=== PATIENT | male | born 1980 | race Caucasian/White ===

== ENCOUNTER → 2017-10-04 11:02 | Outpatient (CLI) | payer BC, SELFPAY ==
[2017-10-04 11:33] LABS: Basophils % 0.1 % (0.1-2.0); Eosinophils % 0.3 % (0.1-12.0); Hematocrit 50.9 % (42.0-52.0); Hemoglobin 16.7 g/dL (14.1-18.0); Lymphocytes # 1.1 K/mm3 (0.7-4.5); Lymphocytes % 11.5 K/mm3 (10-50); Mean Corpuscular HGB Conc 32.8 g/dL (31.8-35.4); Mean Corpuscular Hemoglobin 35.4 pg (27.0-31.2); Mean Corpuscular Volume 107.8 fl (80-94); Monocytes # 0.3 K/mm3 (0.1-1.0); Monocytes % 2.9 % (1.7-9.3); Neutrophils # 8.2 K/mm3 (1.8-7.8); Neutrophils % 85.2 % (37.0-80.0); Platelet Count 415 K/mm3 (142-424); Red Blood Count 4.72 M/mm3 (4.60-6.20); Red Cell Distribution Width 13.9 % (11.5-17.5); White Blood Count 9.7 K/mm3 (4.8-10.8)
[2017-10-04 11:39] LABS: MANUAL DIFFERENTIAL MANUAL DIFFERENTIAL (MANUAL DIFF)
[2017-10-04 11:45] LABS: Alanine Aminotransferase 47 U/L (12-78); Albumin Level 4.3 gm/dL (3.4-5.0); Albumin/Globulin Ratio 1.1 (1.1-1.8); Alkaline Phosphatase 96 U/L (46-116); Anion Gap 13.8 mEq/L (5-15); Aspartate Amino Transferase 13 U/L (15-37); Bilirubin,Total 0.7 mg/dL (0.2-1.0); Blood Urea Nitrogen 13 mg/dL (7-18); Carbon Dioxide 28 mmol/L (21.0-32.0); Chloride 101 mmol/L (98-107); Creatinine,Serum 1.02 mg/dL (0.70-1.30); Estimated Glomerular Filt Rate 83 ml/min (>60); GFR (African American) 100 ML/MIN (>60); Globulin 3.9 gm/dl (1.3-3.2); Glucose 148 mg/dL (74-106); Potassium 4.8 mmoL/L (3.5-5.1); Sodium 138 mmol/L (136-145); Total Protein,Serum 8.2 gm/dL (6.4-8.2)
[2017-10-04 12:40] LABS: Eosinophils % 1 % (0-3); Lymphocytes % 12 % (10-50); Monocytes % 5 % (2-9); Neutrophils % 82 % (42-76); Platelet Estimate Normal; RBC Morphology Normal; Total Cells Counted 100
== END ==
PROVIDERS: Visit Provider Surgery
DX: K80.10 Calculus of gallbladder with chronic cholecystitis without obstruction (principal)
CPT/HCPCS: 36415; 80053; 85007; 85025; 93005

== ENCOUNTER 2017-10-07 07:11 | Day surgery (SDC) | payer BC, SELFPAY ==
[2017-10-06 13:47] VITALS: BMI 39.3
[2017-10-07] VITALS (16 sets, daily range): BP systolic 128–167; BP diastolic 78–107; PULSE 85–106; RESP 16–20; TEMP 36.3–43; O2SAT 92–98
--- NOTE | 2017-10-07 07:45 | HMH.ANESCL ---
[facility] Anesthesia Checklist - Patient Identification Patient Identification: Arm Band, Verbal (Name & ) - Structural Data Admitted From: Home Planned Operative Procedure/s: lap choly Consent for Planned Operative Procedure(s) Verified: Yes Verified Documents: Surgical Consent - NPO Status Verified Time NPO: 00:00 - Chart Verification Results Verified: CBC, BMP - Additional verifications Patient : No Anesthesia Reactions: No Hx Blood Transfusions: No Blood Transfusion Reaction: No Cephalosporin Allergy: No Previous Colonoscopy: No - Cardiovascular Assessment Heart Sounds: S1 & S2 Pulse Strength: Baseline Pulse Rhythm: Regular Peripheral Edema: No - Airway Assessment C-Spine Mobility Assessed: Yes TMJ Mobility Assessed: Yes Dentition: Good Dentition - Neurological Assessment Level of Consciousness: Awake, Alert, Appropriate Hx Seizures: No Numbness or tingling in extremities: No - Anesthesia Plan Anesthesia Risk discussed: Yes Anesthesia Plan: Verified ASA Class: II Anesthesia Type: MAC [facility] Anesthesia HX I have reviewed the patient's past medical history: Yes Medical History: Reports:: Hypertension Denies:: Cancer, Diabetes Mellitus Type 1, Diabetes Mellitus Type 2, MRSA Other Surgeries: Yes: Hernia Repair Amputation: No *Family Hx:: Diabetes, Heart Attack, Hypertension
--- NOTE | 2017-10-07 07:48 | P.PN_ITS ---
[facility] Anesthesia Checklist - Patient Identification Patient Identification: Arm Band, Verbal (Name & ) - Structural Data Admitted From: Home Planned Operative Procedure/s: lap choly Consent for Planned Operative Procedure(s) Verified: Yes Verified Documents: Surgical Consent - NPO Status Verified Time NPO: 00:00 - Chart Verification Results Verified: CBC, BMP - Additional verifications Patient : No Anesthesia Reactions: No Hx Blood Transfusions: No Blood Transfusion Reaction: No Cephalosporin Allergy: No Previous Colonoscopy: No - Cardiovascular Assessment Heart Sounds: S1 & S2 Pulse Strength: Baseline Pulse Rhythm: Regular Peripheral Edema: No - Airway Assessment C-Spine Mobility Assessed: Yes TMJ Mobility Assessed: Yes Dentition: Good Dentition - Neurological Assessment Level of Consciousness: Awake, Alert, Appropriate Hx Seizures: No Numbness or tingling in extremities: No - Anesthesia Plan Anesthesia Risk discussed: Yes Anesthesia Plan: Verified ASA Class: II Anesthesia Type: MAC [facility] Anesthesia HX I have reviewed the patient's past medical history: Yes Medical History: Reports:: Hypertension Denies:: Cancer, Diabetes Mellitus Type 1, Diabetes Mellitus Type 2, MRSA Other Surgeries: Yes: Hernia Repair Amputation: No *Family Hx:: Diabetes, Heart Attack, Hypertension
--- NOTE | 2017-10-07 10:21 | SUR.OPER ---
Upon entering OR pt has 2 small scratches noted to abdomen, Dr Hartmann aware.
--- NOTE | 2017-10-07 10:53 | HMH.OPNOTE ---
Date of procedure: 10/07/17 Pre-op Diagnosis:: Chronic calculus cholecystitis Post-op Diagnosis:: Same Procedure performed:: Laparoscopic cholecystectomy Surgeon:: Raji Hartmann MD Ceramic Tile Mechanic(s):: Jannie Stephens ADVERTISING TRAFFIC MANAGER:: Dileep Spann Anesthesia: GETA Estimated blood loss (mL): 15 Operative findings:: Dense adhesions of omentum to anterior abdominal wall along the mid abdomen status post prior hernia repair Changes consistent with mild to moderate cholecystitis Operative note:: After informed consent was obtained, the patient was taken to the operating room and placed in the supine position. General anesthesia was induced and the abdomen was prepped and draped in a sterile fashion. After infiltration with local anesthetic a stab incision was made in the left upper quadrant. A Veress needle was placed in position. After infiltration with local anesthetic an incision was made in the left mid flank and a 5 mm trocar was secured. Visualization revealed dense adhesions of omentum to the anterior abdominal wall status post prior hernia repair. A 12 mm optical trocar was placed in the subxiphoid position under direct visualization. Careful blunt dissection was utilized to free enough space for the supraumbilical trocar to be placed. After infiltration with local anesthetic an incision was made above the umbilicus and the 5 mm trocar was secured. 2 additional 5 mm trocars were placed in the right upper quadrant. The gallbladder was elevated up and over the liver margin. The tissue around the cystic duct was carefully dissected. 3 clips were placed proximally and the duct was transected with harmonic ace. Harmonic ace were then utilized to dissect the gallbladder away from the liver margin with careful attention to the control of the cystic artery. The gallbladder was placed in a retrieval bag and removed through the subxiphoid trocar site. The right upper quadrant was thoroughly irrigated. No active bleeding or bile leak was noted. Fascia at the subxiphoid trocar site was reapproximated utilizing the NeoClose device. The remaining trocars were removed. All wounds were irrigated and skin was closed with 4-0 Monocryl in a subcuticular fashion. Steri-Strips were applied. The patient's anesthetic agents were reversed and extubation was completed prior to transfer to recovery in stable condition. Condition: stable Disposition: PACU Specimens:: Gallbladder and contents Complications:: No immediate
--- NOTE | 2017-10-07 10:58 | P.OP_ITS ---
Date of procedure: 10/07/17 Pre-op Diagnosis:: Chronic calculus cholecystitis Post-op Diagnosis:: Same Procedure performed:: Laparoscopic cholecystectomy Surgeon:: Raji Hartmann MD Yeast Pusher(s):: Jannie Stephens MEDICAL INSURANCE CODER:: Dileep Spann Anesthesia: GETA Estimated blood loss (mL): 15 Operative findings:: Dense adhesions of omentum to anterior abdominal wall along the mid abdomen status post prior hernia repair Changes consistent with mild to moderate cholecystitis Operative note:: After informed consent was obtained, the patient was taken to the operating room and placed in the supine position. General anesthesia was induced and the abdomen was prepped and draped in a sterile fashion. After infiltration with local anesthetic a stab incision was made in the left upper quadrant. A Veress needle was placed in position. After infiltration with local anesthetic an incision was made in the left mid flank and a 5 mm trocar was secured. Visualization revealed dense adhesions of omentum to the anterior abdominal wall status post prior hernia repair. A 12 mm optical trocar was placed in the subxiphoid position under direct visualization. Careful blunt dissection was utilized to free enough space for the supraumbilical trocar to be placed. After infiltration with local anesthetic an incision was made above the umbilicus and the 5 mm trocar was secured. 2 additional 5 mm trocars were placed in the right upper quadrant. The gallbladder was elevated up and over the liver margin. The tissue around the cystic duct was carefully dissected. 3 clips were placed proximally and the duct was transected with harmonic ace. Harmonic cae were then utilized to dissect the gallbladder away from the liver margin with careful attention to the control of the cystic artery. The gallbladder was placed in a retrieval bag and removed through the subxiphoid trocar site. The right upper quadrant was thoroughly irrigated. No active bleeding or bile leak was noted. Fascia at the subxiphoid trocar site was reapproximated utilizing the NeoClose device. The remaining trocars were removed. All wounds were irrigated and skin was closed with 4-0 Monocryl in a subcuticular fashion. Steri-Strips were applied. The patient's anesthetic agents were reversed and extubation was completed prior to transfer to recovery in stable condition. Condition: stable Disposition: PACU Specimens:: Gallbladder and contents Complications:: No immediate
--- NOTE | 2017-10-07 11:05 | HMH.ANESI ---
[facility] Anesthesia Record Part I Intake, IV Amount: 1,500 Estimated blood loss (mL): 15 Urine output (mL): 0 Blood Pressure: 155/107 SaO2: 95 Pulse Rate: 100 Respiratory Rate: 16 Temperature: 98.9 F Patient is:: Drowsy, Stable Stable to PACU at:: 11:00
--- NOTE | 2017-10-07 11:06 | P.PN_ITS ---
[facility] Anesthesia Record Part II Discharge Time: 11:30 Destination: [facility] PACU nurse assessment reviewed?: Yes Patient Condition:: Good Anesthesia Complications:: None
--- NOTE | 2017-10-07 11:06 | HMH.ANESII ---
[facility] Anesthesia Record Part II Discharge Time: 11:30 Destination: [facility] PACU nurse assessment reviewed?: Yes Patient Condition:: Good Anesthesia Complications:: None
--- NOTE | 2017-10-07 15:08 | PC.NURSE ---
1115-pt eating ice chips w/out difficulty 1120-o2 titrated off, sats stable on room air
--- NOTE | 2017-10-07 15:18 | PC.NURSE ---
1137-detailed report called to JIL Webb 1139-Pt transported to post op via stretcher w/rails up and left in care of JIL Webb w/bed locked in lowest position. VSS. Pt stable.
== END 2017-10-07 13:00 | disposition home or self-care (01) ==
LOC: OR 07:13
PROVIDERS: Family Provider Emergency Medicine; PCP Emergency Medicine; Visit Provider Surgery
PROC: 0FT44ZZ Resection of Gallbladder, Percutaneous Endoscopic Approach (ICD-10-PCS; CPT 47562; principal; 2017-10-07 08:45)
DX: K81.1 Chronic cholecystitis (principal)
CPT/HCPCS: 47562; 96374; J0131; J2405; J2710

== ENCOUNTER → 2019-05-04 12:26 | Outpatient (CLI) | payer BC, SELFPAY | PROVIDERS: Visit Provider Emergency Medicine | DX: R10.30 Lower abdominal pain, unspecified (principal); R10.9 Unspecified abdominal pain | CPT/HCPCS: 87086 ==

== ENCOUNTER → 2019-08-11 12:25 | Outpatient (CLI) | payer BC, SELFPAY ==
[2019-08-11 15:16] LABS: Chol/HDL Ratio 6.6 (1-3.5); Cholesterol 126 mg/dL (140-200); Free T4 (Free Thyroxine) 1.03 ng/dl (0.76-1.46); HDL Cholesterol 19 mg/dL (27-67); LDL Cholesterol 44 mg/dL (0-130); Thyroid Stimulating Hormone 4.06 uIU/ml (0.358-3.740); Triglycerides 316 mg/dL (30-200); VLDL Cholesterol 63 mg/dL (0-40)
[2019-08-11 16:13] LABS: C-Reactive Protein 1.3 mg/dL (0.0-0.9)
[2019-08-11 18:59] LABS: Erythrocyte Sedimentation Rate > 140 mm/hr (0-15)
[2019-08-13 06:28] LABS: Vitamin D 25 Hydroxy 17.6 ng/mL (30.0-100.0)
== END ==
PROVIDERS: Emergency Medicine; Nurse Practitioner Family; Visit Provider Physician Assistant
DX: R53.83 Other fatigue (principal); R16.1 Splenomegaly, not elsewhere classified; E55.9 Vitamin D deficiency, unspecified
CPT/HCPCS: 80061; 82652; 84439; 84443; 85651; 86140

== ENCOUNTER → 2019-08-12 16:21 | Outpatient (CLI) | payer BC, SELFPAY ==
[2019-08-12 16:44] LABS: Basophils % 0.5 % (0.1-2.0); Eosinophils # 0.1 K/mm3 (0.0-0.4); Eosinophils % 2.9 % (0.1-12.0); Hemoglobin 8.3 g/dL (14.1-18.0); Lymphocytes # 1.3 K/mm3 (0.7-4.5); Lymphocytes % 29.5 % (10-50); Mean Corpuscular HGB Conc 35.8 g/dL (31.8-35.4); Mean Corpuscular Volume 119.3 fl (80-94); Mean Platelet Volume 8.6 fl (7.4-10.4); Monocytes # 0.1 K/mm3 (0.1-1.0); Monocytes % 2.9 % (1.7-9.3); Neutrophils # 2.8 K/mm3 (1.8-7.8); Neutrophils % 64.1 % (37.0-80.0); Platelet Count 178 K/mm3 (142-424); Red Cell Distribution Width 21.9 % (11.5-17.5); White Blood Count 4.3 K/mm3 (4.8-10.8)
[2019-08-12 16:53] LABS: Red Blood Count 1.95 M/mm3 (4.60-6.20)
[2019-08-12 17:00] LABS: Hematocrit 23.3 % (42.0-52.0)
[2019-08-12 19:25] LABS: Alanine Aminotransferase 36 U/L (12-78); Albumin Level 4.3 gm/dL (3.4-5.0); Albumin/Globulin Ratio 1.7 (1.1-1.8); Alkaline Phosphatase 70 U/L (46-116); Aspartate Amino Transferase 90 U/L (15-37); Bilirubin,Total 1.7 mg/dL (0.2-1.0); Blood Urea Nitrogen 14 mg/dL (7-18); Carbon Dioxide 25 mmol/L (21.0-32.0); Chloride 104 mmol/L (98-107); Creatinine,Serum 1.12 mg/dL (0.70-1.30); Estimated Glomerular Filt Rate 73 ml/min (>60); GFR (African American) 89 ML/MIN (>60); Globulin 2.5 gm/dl (1.3-3.2); Glucose 137 mg/dL (74-106); Sodium 140 mmol/L (136-145); Total Protein,Serum 6.8 gm/dL (6.4-8.2)
[2019-08-12 20:05] LABS: Lactate Dehydrogenase 2990 U/L (82-234)
[2019-08-15 17:57] LABS: Haptoglobin <10 mg/dL (17-317); Vitamin B12 <50 pg/mL (232-1245)
== END ==
PROVIDERS: Visit Provider Internal Medicine Medical Oncology
DX: D64.9 Anemia, unspecified (principal)
CPT/HCPCS: 36415; 80053; 82607; 83010; 83615; 85025; 86880

== ENCOUNTER → 2019-08-19 13:36 | Outpatient (CLI) | payer BC, SELFPAY ==
[2019-08-19 14:07] LABS: Basophils % 0.6 % (0.1-2.0); Eosinophils # 0.2 K/mm3 (0.0-0.4); Eosinophils % 3.7 % (0.1-12.0); Hemoglobin 8.4 g/dL (14.1-18.0); Lymphocytes # 1.8 K/mm3 (0.7-4.5); Lymphocytes % 33.8 % (10-50); Mean Corpuscular HGB Conc 33.8 g/dL (31.8-35.4); Mean Corpuscular Volume 112.4 fl (80-94); Mean Platelet Volume 8.9 fl (7.4-10.4); Monocytes # 0.3 K/mm3 (0.1-1.0); Monocytes % 5.2 % (1.7-9.3); Neutrophils % 56.6 % (37.0-80.0); Platelet Count 162 K/mm3 (142-424); Red Blood Count 2.21 M/mm3 (4.60-6.20); Red Cell Distribution Width 24.4 % (11.5-17.5); White Blood Count 5.3 K/mm3 (4.8-10.8)
[2019-08-19 14:22] LABS: Hematocrit 25.2 % (42.0-52.0)
[2019-08-19 15:16] LABS: Lactate Dehydrogenase 2554 U/L (82-234)
== END ==
PROVIDERS: Visit Provider Internal Medicine Medical Oncology
DX: D64.9 Anemia, unspecified (principal)
CPT/HCPCS: 36415; 83615; 85025

== ENCOUNTER → 2019-08-26 11:53 | Outpatient (CLI) | payer BC, SELFPAY ==
[2019-08-26 12:23] LABS: Basophils % 0.3 % (0.1-2.0); Eosinophils # 0.3 K/mm3 (0.0-0.4); Hematocrit 37.5 % (42.0-52.0); Hemoglobin 11.5 g/dL (14.1-18.0); Lymphocytes # 1.1 K/mm3 (0.7-4.5); Lymphocytes % 19.2 % (10-50); Mean Corpuscular HGB Conc 30.8 g/dL (31.8-35.4); Mean Corpuscular Hemoglobin 35.1 pg (27.0-31.2); Mean Platelet Volume 8.4 fl (7.4-10.4); Monocytes # 0.4 K/mm3 (0.1-1.0); Monocytes % 6.4 % (1.7-9.3); Neutrophils # 3.8 K/mm3 (1.8-7.8); Neutrophils % 68.1 % (37.0-80.0); Platelet Count 295 K/mm3 (142-424); Red Blood Count 3.29 M/mm3 (4.60-6.20); Red Cell Distribution Width 20.5 % (11.5-17.5); White Blood Count 5.5 K/mm3 (4.8-10.8)
[2019-08-26 13:39] LABS: Lactate Dehydrogenase 603 U/L (82-234)
== END ==
PROVIDERS: Visit Provider Internal Medicine Medical Oncology
DX: D53.9 Nutritional anemia, unspecified (principal); E53.8 Deficiency of other specified B group vitamins
CPT/HCPCS: 36415; 83615; 85025

== ENCOUNTER → 2019-09-02 14:36 | Outpatient (CLI) | payer BC, SELFPAY ==
[2019-09-02 15:02] LABS: Basophils # 0.1 K/mm3 (0-0.2); Eosinophils # 0.3 K/mm3 (0.0-0.4); Eosinophils % 5.6 % (0.1-12.0); Hematocrit 37.5 % (42.0-52.0); Lymphocytes # 1.3 K/mm3 (0.7-4.5); Lymphocytes % 23.4 % (10-50); Mean Corpuscular HGB Conc 31.9 g/dL (31.8-35.4); Mean Corpuscular Hemoglobin 34.2 pg (27.0-31.2); Mean Corpuscular Volume 107.3 fl (80-94); Mean Platelet Volume 7.8 fl (7.4-10.4); Monocytes # 0.3 K/mm3 (0.1-1.0); Monocytes % 5.7 % (1.7-9.3); Neutrophils # 3.6 K/mm3 (1.8-7.8); Neutrophils % 64.2 % (37.0-80.0); Platelet Count 374 K/mm3 (142-424); Red Blood Count 3.49 M/mm3 (4.60-6.20); Red Cell Distribution Width 17.9 % (11.5-17.5); White Blood Count 5.5 K/mm3 (4.8-10.8)
[2019-09-02 16:07] LABS: Alanine Aminotransferase 35 U/L (12-78); Albumin Level 3.9 gm/dL (3.4-5.0); Albumin/Globulin Ratio 1.4 (1.1-1.8); Alkaline Phosphatase 94 U/L (46-116); Anion Gap 15.2 mEq/L (5-15); Aspartate Amino Transferase 20 U/L (15-37); Bilirubin,Total 0.5 mg/dL (0.2-1.0); Blood Urea Nitrogen 11 mg/dL (7-18); Calcium 8.8 mg/dL (8.5-10.1); Carbon Dioxide 26 mmol/L (21.0-32.0); Chloride 106 mmol/L (98-107); Creatinine,Serum 1.04 mg/dL (0.70-1.30); Estimated Glomerular Filt Rate 80 ml/min (>60); GFR (African American) 97 ML/MIN (>60); Globulin 2.7 gm/dl (1.3-3.2); Glucose 142 mg/dL (74-106); Lactate Dehydrogenase 223 U/L (82-234); Potassium 4.2 mmoL/L (3.5-5.1); Sodium 143 mmol/L (136-145); Total Protein,Serum 6.6 gm/dL (6.4-8.2)
[2019-09-04 11:04] LABS: Vitamin B12 496 pg/mL (232-1245)
== END ==
PROVIDERS: Visit Provider Internal Medicine Medical Oncology
DX: D51.8 Other vitamin B12 deficiency anemias (principal)
CPT/HCPCS: 36415; 80053; 82607; 83615; 85025

== ENCOUNTER → 2019-09-09 17:17 | Outpatient (CLI) | payer BC, SELFPAY ==
[2019-09-09 17:46] LABS: Basophils # 0.1 K/mm3 (0-0.2); Basophils % 0.9 % (0.1-2.0); Eosinophils # 0.4 K/mm3 (0.0-0.4); Eosinophils % 5.1 % (0.1-12.0); Hematocrit 39.7 % (42.0-52.0); Hemoglobin 13.1 g/dL (14.1-18.0); Lymphocytes # 1.5 K/mm3 (0.7-4.5); Lymphocytes % 17.8 % (10-50); Mean Corpuscular Hemoglobin 33.1 pg (27.0-31.2); Mean Corpuscular Volume 100.2 fl (80-94); Mean Platelet Volume 7.7 fl (7.4-10.4); Monocytes # 0.4 K/mm3 (0.1-1.0); Monocytes % 4.8 % (1.7-9.3); Neutrophils # 5.8 K/mm3 (1.8-7.8); Neutrophils % 71.4 % (37.0-80.0); Platelet Count 363 K/mm3 (142-424); Red Blood Count 3.96 M/mm3 (4.60-6.20); Red Cell Distribution Width 16.5 % (11.5-17.5); White Blood Count 8.2 K/mm3 (4.8-10.8)
[2019-09-09 18:27] LABS: Alanine Aminotransferase 28 U/L (12-78); Albumin Level 4.3 gm/dL (3.4-5.0); Albumin/Globulin Ratio 1.5 (1.1-1.8); Alkaline Phosphatase 99 U/L (46-116); Anion Gap 14.1 mEq/L (5-15); Aspartate Amino Transferase 18 U/L (15-37); Bilirubin,Total 0.4 mg/dL (0.2-1.0); Blood Urea Nitrogen 14 mg/dL (7-18); Calcium 8.9 mg/dL (8.5-10.1); Carbon Dioxide 26 mmol/L (21.0-32.0); Chloride 105 mmol/L (98-107); Creatinine,Serum 0.94 mg/dL (0.70-1.30); Estimated Glomerular Filt Rate 90 ml/min (>60); GFR (African American) 109 ML/MIN (>60); Globulin 2.8 gm/dl (1.3-3.2); Glucose 154 mg/dL (74-106); Lactate Dehydrogenase 170 U/L (82-234); Potassium 4.1 mmoL/L (3.5-5.1); Sodium 141 mmol/L (136-145); Total Protein,Serum 7.1 gm/dL (6.4-8.2)
[2019-09-11 15:31] LABS: Vitamin B12 499 pg/mL (232-1245)
== END ==
PROVIDERS: Visit Provider Internal Medicine Medical Oncology
DX: D51.9 Vitamin B12 deficiency anemia, unspecified (principal)
CPT/HCPCS: 36415; 80053; 82607; 83615; 85025

== ENCOUNTER → 2019-09-24 12:08 | Outpatient (CLI) | payer BC, SELFPAY ==
[2019-09-24 12:52] LABS: Basophils % 0.5 % (0.1-2.0); Eosinophils # 0.4 K/mm3 (0.0-0.4); Eosinophils % 5.6 % (0.1-12.0); Hematocrit 45.7 % (42.0-52.0); Hemoglobin 14.3 g/dL (14.1-18.0); Lymphocytes # 1.4 K/mm3 (0.7-4.5); Mean Corpuscular HGB Conc 31.2 g/dL (31.8-35.4); Mean Corpuscular Hemoglobin 30.2 pg (27.0-31.2); Mean Corpuscular Volume 96.8 fl (80-94); Mean Platelet Volume 7.8 fl (7.4-10.4); Monocytes # 0.4 K/mm3 (0.1-1.0); Monocytes % 6.2 % (1.7-9.3); Neutrophils # 4.8 K/mm3 (1.8-7.8); Neutrophils % 67.6 % (37.0-80.0); Platelet Count 382 K/mm3 (142-424); Red Blood Count 4.72 M/mm3 (4.60-6.20); Red Cell Distribution Width 16.4 % (11.5-17.5); White Blood Count 7.1 K/mm3 (4.8-10.8)
[2019-09-24 14:46] LABS: Chloride 104 mmol/L (98-107)
[2019-09-24 14:47] LABS: Potassium 4.9 mmoL/L (3.5-5.1); Sodium 141 mmol/L (136-145)
[2019-09-24 14:49] LABS: Alanine Aminotransferase 23 U/L (12-78); Alkaline Phosphatase 81 U/L (38-126); Aspartate Amino Transferase 30 U/L (17-59); Bilirubin,Total 0.3 mg/dl (0.2-1.3); Blood Urea Nitrogen 14 mg/dl (9-20); Estimated Glomerular Filt Rate 94 ml/min (>60); GFR (African American) 114 ML/MIN (>60)
[2019-09-24 14:50] LABS: Albumin Level 4.8 g/dl (3.5-5.0); Albumin/Globulin Ratio 1.6 (1.1-1.8); Anion Gap 13.9 mEq/L (5-15); Carbon Dioxide 28 mmol/L (22.0-30.0); Glucose 83 mg/dl (74-100); Total Protein,Serum 7.8 g/dl (6.3-8.2)
[2019-09-24 15:17] LABS: Thyroid Stimulating Hormone 7.04 uIU/mL (0.465-4.68)
== END ==
PROVIDERS: Visit Provider Internal Medicine Medical Oncology
DX: D53.9 Nutritional anemia, unspecified (principal); E53.8 Deficiency of other specified B group vitamins; R16.1 Splenomegaly, not elsewhere classified
CPT/HCPCS: 36415; 80053; 84443; 85025

== ENCOUNTER → 2019-11-05 08:49 | Outpatient (CLI) | payer BC, SELFPAY ==
[2019-11-05 09:52] LABS: Basophils % 0.7 % (0.1-2.0); Eosinophils # 0.3 K/mm3 (0.0-0.4); Eosinophils % 4.8 % (0.1-12.0); Hematocrit 45.3 % (42.0-52.0); Hemoglobin 15.3 g/dL (14.1-18.0); Lymphocytes # 1.5 K/mm3 (0.7-4.5); Mean Corpuscular HGB Conc 33.8 g/dL (31.8-35.4); Mean Corpuscular Hemoglobin 29.8 pg (27.0-31.2); Mean Corpuscular Volume 88.1 fl (80-94); Monocytes # 0.4 K/mm3 (0.1-1.0); Monocytes % 5.7 % (1.7-9.3); Neutrophils % 64.9 % (37.0-80.0); Platelet Count 274 K/mm3 (142-424); Red Blood Count 5.15 M/mm3 (4.60-6.20); White Blood Count 6.2 K/mm3 (4.8-10.8)
[2019-11-05 10:54] LABS: Alanine Aminotransferase 33 U/L (12-78); Albumin Level 4.5 g/dl (3.5-5.0); Albumin/Globulin Ratio 1.6 (1.1-1.8); Alkaline Phosphatase 97 U/L (38-126); Anion Gap 14.1 mEq/L (5-15); Aspartate Amino Transferase 32 U/L (17-59); Bilirubin,Total 0.3 mg/dl (0.2-1.3); Blood Urea Nitrogen 11 mg/dl (9-20); Calcium 9.7 mg/dl (8.4-10.2); Carbon Dioxide 24 mmol/L (22.0-30.0); Chloride 105 mmol/L (98-107); Estimated Glomerular Filt Rate 108 ml/min (>60); GFR (African American) 131 ML/MIN (>60); Globulin 2.8 g/dL (1.3-3.2); Glucose 151 mg/dl (74-100); Lactate Dehydrogenase 203 U/L (313-618); Potassium 4.1 mmoL/L (3.5-5.1); Sodium 139 mmol/L (136-145); Total Protein,Serum 7.3 g/dl (6.3-8.2)
[2019-11-06 07:26] LABS: Haptoglobin 171 mg/dL (17-317)
[2019-11-06 09:07] LABS: Vitamin B12 166 pg/mL (232-1245)
== END ==
PROVIDERS: Visit Provider Internal Medicine Medical Oncology
DX: E53.8 Deficiency of other specified B group vitamins (principal)
CPT/HCPCS: 36415; 80053; 82607; 83010; 83615; 85025

== ENCOUNTER → 2019-12-06 08:20 | Outpatient (CLI) | payer BC, SELFPAY ==
[2019-12-06 09:11] LABS: Basophils # 0.1 K/mm3 (0-0.2); Basophils % 0.8 % (0.1-2.0); Eosinophils # 0.3 K/mm3 (0.0-0.4); Eosinophils % 3.6 % (0.1-12.0); Hematocrit 44.4 % (42.0-52.0); Hemoglobin 15.2 g/dL (14.1-18.0); Lymphocytes # 1.5 K/mm3 (0.7-4.5); Lymphocytes % 20.6 % (10-50); Mean Corpuscular HGB Conc 34.1 g/dL (31.8-35.4); Mean Corpuscular Hemoglobin 29.1 pg (27.0-31.2); Mean Corpuscular Volume 85.1 fl (80-94); Mean Platelet Volume 8.3 fl (7.4-10.4); Monocytes # 0.3 K/mm3 (0.1-1.0); Monocytes % 4.5 % (1.7-9.3); Neutrophils # 5.1 K/mm3 (1.8-7.8); Neutrophils % 70.4 % (37.0-80.0); Platelet Count 277 K/mm3 (142-424); Red Blood Count 5.21 M/mm3 (4.60-6.20); Red Cell Distribution Width 14.3 % (11.5-17.5); White Blood Count 7.2 K/mm3 (4.8-10.8)
[2019-12-06 10:42] LABS: Alanine Aminotransferase 37 U/L (12-78); Albumin Level 4.5 g/dl (3.5-5.0); Albumin/Globulin Ratio 1.7 (1.1-1.8); Alkaline Phosphatase 99 U/L (38-126); Anion Gap 10.2 mEq/L (5-15); Aspartate Amino Transferase 32 U/L (17-59); Bilirubin,Total 0.4 mg/dl (0.2-1.3); Blood Urea Nitrogen 10 mg/dl (9-20); Calcium 9.5 mg/dl (8.4-10.2); Carbon Dioxide 28 mmol/L (22.0-30.0); Chloride 104 mmol/L (98-107); Estimated Glomerular Filt Rate 108 ml/min (>60); GFR (African American) 131 ML/MIN (>60); Globulin 2.7 g/dL (1.3-3.2); Glucose 141 mg/dl (74-100); Potassium 4.2 mmoL/L (3.5-5.1); Sodium 138 mmol/L (136-145); Total Protein,Serum 7.2 g/dl (6.3-8.2)
[2019-12-07 17:20] LABS: Vitamin B12 462 pg/mL (232-1245)
== END ==
PROVIDERS: Visit Provider Internal Medicine Medical Oncology
DX: E53.8 Deficiency of other specified B group vitamins (principal)
CPT/HCPCS: 36415; 80053; 82607; 85025

== ENCOUNTER → 2019-12-16 16:37 | Outpatient (CLI) | payer BC, SELFPAY ==
[2019-12-16 16:40] LABS: Adenovirus F 40/41, stool Not Detected (NotDetected); Astrovirus Not Detected (NotDetected); Campylobacter Not Detected (NotDetected); Cryptosporidium Not Detected (NotDetected); Cyclospora Cayetanesis Not Detected (NotDetected); Entamoeba histolytica Not Detected (NotDetected); Enteroaggregative E coli Not Detected (NotDetected); Enteropathogenic E coli Not Detected (NotDetected); Enterotoxigenic E coli Not Detected (NotDetected); Giardia lamblia Not Detected (NotDetected); Norovirus Not Detected (NotDetected); Plesimonas Shigalloides, PCR Not Detected (NotDetected); Rotavirus A Not Detected (NotDetected); Salmonella, PCR Not Detected (NotDetected); Sapovirus Not Detected (NotDetected); Shiga-like toxin E coli Not Detected (NotDetected); Shigella Enterovasive E coli Not Detected (NotDetected); Vibrio Cholerae Not Detected (NotDetected); Vibrio, PCR Not Detected (NotDetected); Yersinia Entercolitica, PCR Not Detected (NotDetected)
[2019-12-16 20:26] LABS: Clostridium Difficile A/B, PCR Detected (NotDetected)
== END ==
PROVIDERS: Visit Provider Physician Assistant
DX: R19.7 Diarrhea, unspecified (principal); A04.72 Enterocolitis due to Clostridium difficile, not specified as recurrent
CPT/HCPCS: 87507

== ENCOUNTER → 2020-01-03 11:18 | Outpatient (CLI) | payer BC, SELFPAY ==
[2020-01-03 11:44] LABS: Basophils # 0.1 K/mm3 (0-0.2); Basophils % 0.7 % (0.1-2.0); Eosinophils # 0.3 K/mm3 (0.0-0.4); Eosinophils % 3.2 % (0.1-12.0); Hematocrit 45.3 % (42.0-52.0); Hemoglobin 15.4 g/dL (14.1-18.0); Lymphocytes # 1.7 K/mm3 (0.7-4.5); Lymphocytes % 19.3 % (10-50); Mean Corpuscular Hemoglobin 30.9 pg (27.0-31.2); Mean Corpuscular Volume 90.8 fl (80-94); Mean Platelet Volume 7.9 fl (7.4-10.4); Monocytes # 0.4 K/mm3 (0.1-1.0); Monocytes % 4.6 % (1.7-9.3); Neutrophils # 6.3 K/mm3 (1.8-7.8); Neutrophils % 72.1 % (37.0-80.0); Platelet Count 297 K/mm3 (142-424); Red Blood Count 4.99 M/mm3 (4.60-6.20); Red Cell Distribution Width 15.8 % (11.5-17.5); White Blood Count 8.8 K/mm3 (4.8-10.8)
[2020-01-04 13:41] LABS: Vitamin B12 632 pg/mL (232-1245)
== END ==
PROVIDERS: Visit Provider Internal Medicine Medical Oncology
DX: E53.8 Deficiency of other specified B group vitamins (principal)
CPT/HCPCS: 36415; 82607; 85025

== ENCOUNTER → 2020-02-29 08:15 | Outpatient (CLI) | payer BC, SELFPAY ==
[2020-02-29 08:34] LABS: Basophils % 0.4 % (0.1-2.0); Eosinophils # 0.3 K/mm3 (0.0-0.4); Eosinophils % 3.7 % (0.1-12.0); Hematocrit 45.5 % (42.0-52.0); Hemoglobin 15.6 g/dL (14.1-18.0); Lymphocytes # 1.6 K/mm3 (0.7-4.5); Lymphocytes % 18.5 % (10-50); Mean Corpuscular HGB Conc 34.3 g/dL (31.8-35.4); Mean Corpuscular Volume 93.5 fl (80-94); Mean Platelet Volume 8.2 fl (7.4-10.4); Monocytes # 0.4 K/mm3 (0.1-1.0); Monocytes % 4.7 % (1.7-9.3); Neutrophils # 6.1 K/mm3 (1.8-7.8); Neutrophils % 72.7 % (37.0-80.0); Platelet Count 258 K/mm3 (142-424); Red Blood Count 4.87 M/mm3 (4.60-6.20); Red Cell Distribution Width 14.5 % (11.5-17.5); White Blood Count 8.5 K/mm3 (4.8-10.8)
[2020-02-29 09:04] LABS: Chloride 102 mmol/L (98-107); Potassium 4.1 mmoL/L (3.5-5.1); Sodium 139 mmol/L (136-145)
[2020-02-29 09:07] LABS: Alanine Aminotransferase 39 U/L (12-78); Alkaline Phosphatase 115 U/L (38-126); Aspartate Amino Transferase 32 U/L (17-59); Bilirubin,Total 0.6 mg/dl (0.2-1.3); Blood Urea Nitrogen 11 mg/dl (9-20); Estimated Glomerular Filt Rate 108 ml/min (>60); GFR (African American) 131 ML/MIN (>60)
[2020-02-29 09:08] LABS: Calcium 9.2 mg/dl (8.4-10.2); Glucose 154 mg/dl (74-100)
[2020-02-29 09:33] LABS: Albumin Level 4.1 g/dl (3.5-5.0); Albumin/Globulin Ratio 1.6 (1.1-1.8); Anion Gap 14.1 mEq/L (5-15); Carbon Dioxide 27 mmol/L (22.0-30.0); Globulin 2.6 g/dL (1.3-3.2); Total Protein,Serum 6.7 g/dl (6.3-8.2)
[2020-03-01 20:02] LABS: Vitamin B12 658 pg/mL (232-1245)
== END ==
PROVIDERS: Visit Provider Internal Medicine Medical Oncology
DX: D51.9 Vitamin B12 deficiency anemia, unspecified (principal)
CPT/HCPCS: 36415; 80053; 82607; 85025

== ENCOUNTER → 2020-05-03 09:26 | Outpatient (CLI) | payer BC, SELFPAY ==
[2020-05-03 10:08] LABS: Basophils % 0.5 % (0.1-2.0); Eosinophils # 0.2 K/mm3 (0.0-0.4); Eosinophils % 2.8 % (0.1-12.0); Hematocrit 48.1 % (42.0-52.0); Hemoglobin 15.8 g/dL (14.1-18.0); Lymphocytes # 1.7 K/mm3 (0.7-4.5); Lymphocytes % 21.4 % (10-50); Mean Corpuscular HGB Conc 32.9 g/dL (31.8-35.4); Mean Corpuscular Hemoglobin 30.8 pg (27.0-31.2); Mean Corpuscular Volume 93.6 fl (80-94); Mean Platelet Volume 7.9 fl (7.4-10.4); Monocytes # 0.4 K/mm3 (0.1-1.0); Monocytes % 4.7 % (1.7-9.3); Neutrophils # 5.5 K/mm3 (1.8-7.8); Neutrophils % 70.5 % (37.0-80.0); Platelet Count 259 K/mm3 (142-424); Red Blood Count 5.14 M/mm3 (4.60-6.20); White Blood Count 7.7 K/mm3 (4.8-10.8)
[2020-05-03 12:35] LABS: Chloride 104 mmol/L (98-107)
[2020-05-03 12:36] LABS: Potassium 4.4 mmoL/L (3.5-5.1); Sodium 139 mmol/L (136-145)
[2020-05-03 12:38] LABS: Alanine Aminotransferase 38 U/L (12-78); Alkaline Phosphatase 113 U/L (38-126); Aspartate Amino Transferase 35 U/L (17-59); Bilirubin,Total 0.8 mg/dl (0.2-1.3); Blood Urea Nitrogen 8 mg/dl (9-20); Estimated Glomerular Filt Rate 94 ml/min (>60); GFR (African American) 114 ML/MIN (>60)
[2020-05-03 12:39] LABS: Albumin Level 4.4 g/dl (3.5-5.0); Albumin/Globulin Ratio 1.6 (1.1-1.8); Anion Gap 12.4 mEq/L (5-15); Calcium 9.3 mg/dl (8.4-10.2); Carbon Dioxide 27 mmol/L (22.0-30.0); Globulin 2.8 g/dL (1.3-3.2); Glucose 143 mg/dl (74-100); Total Protein,Serum 7.2 g/dl (6.3-8.2)
[2020-05-03 18:01] LABS: Vitamin B12 894 pg/mL (239-931)
== END ==
PROVIDERS: Visit Provider Internal Medicine Medical Oncology
DX: E53.8 Deficiency of other specified B group vitamins (principal)
CPT/HCPCS: 36415; 80053; 82607; 85025

== ENCOUNTER → 2020-05-18 08:01 | Outpatient (CLI) | payer BC, SELFPAY ==
--- NOTE | 2020-05-18 08:04 | US_ITS ---
PROCEDURE: US ABDOMEN LIMITED CLINICAL INDICATION: SPLEENOMEGALY,B-12 DEFICIENCY COMPARISON: No exams were available for comparison FINDINGS: The spleen is enlarged at 14 cm.. Left kidney has an unremarkable appearance. IMPRESSION: Mild splenomegaly. Dictated by: Ramses Aiken MD 05/18/2020 15:48 Ramses Aiken MD in OV 05/18/2020 15:48
== END ==
PROVIDERS: PCP Emergency Medicine; Visit Provider Internal Medicine Medical Oncology
DX: R16.1 Splenomegaly, not elsewhere classified (principal); E53.8 Deficiency of other specified B group vitamins
CPT/HCPCS: 76705

== ENCOUNTER 2020-08-07 15:45 | Emergency (ER) | payer BC, SELFPAY ==
[2020-08-07 16:05] VITALS: BP 193/107; PULSE 114; RESP 20; TEMP 37.2; O2SAT 96; BMI 53.9
--- NOTE | 2020-08-07 16:33 | HMH.EDUTC ---
[facility] [place] Disposition Clinical Impression: Bronchitis Sinusitis Qualifiers: Sinusitis location: unspecified location Chronicity: unspecified Qualified Code(s): J32.9 - Chronic sinusitis, unspecified Bilateral otitis media Qualifiers: Otitis media type: unspecified Qualified Code(s): H66.93 - Otitis media, unspecified, bilateral Disposition: Home, Self-Care Condition on Discharge: Good Instructions: Sinusitis, DI for Sinusitis, Acute Bronchitis, DI for Pleurisy, Ibuprofen Additional Instructions: ? Start antibiotic today. Be sure to complete entire prescription even if feeling better ? Monitor temp. Tylenol every 4 hours as needed and / or ibuprofen every 6 hours as needed ( As long as your primary care physician has told you that it ok to take both. For fever/aches/pains ER if no less than 101 despite Tylenol or Motrin ? Humidifier/vaporizer or hot steamy shower ? Inhaler every 4-6 hours as needed like we discussed. If unsure how to use it, ask pharmacist to demonstrate how. Should help open airways and improve cough, wheezing, and shortness of breath ? Mucinex during the day for your cough and cough suppressant only at night. Be sure to drink lots of water. Insurance may not cover a prescriptions for mucinex. Might be cheaper to get 400mg tablets and take 2 tablet in the morning, mid-day and evening with lots of water. *Start steroid today. Helps with inflammation therefore, cough and wheezing. Follow directions on the package. Reviewed side effects. Patient reports taking them before. Follow up IMMEDIATELY for new or worsening of symptoms OR no noticeable improvement over the next 48-72 hours. 911 immediately for any life threatening symptoms such as chest pain or difficulty breathing Make sure to monitor blood pressure and go get your medication and take it as prescribed, follow up with your Family Doctor if your blood pressure remains elevated Prescriptions: Albuterol Sulfate [Proventil-HFA 90mcg/puff Inh] 1 - 2 puffs IH Q4HP PRN #1 inh PRN Reason: Shortness Of Breath Transmission Status: Pending to [facility] methylPREDNISolone [Medrol 4mg tab] 4 mg PO DIRECTED #21 tab Transmission Status: Pending to [facility] Azithromycin [Z-Leo 250mg Tab] 250 mg PO DIRECTED #6 tab Transmission Status: Pending to [facility] Referrals: Deangelo Arias MD [Primary Care Provider] - As needed Forms: Work/School Release Time of Disposition: 16:46 Medical Decision Making - Brock Inquiry Pt receiving controlled substance: No Brock was queried for this patient: No Vital Signs: 08/07/20 16:05 Temperature 99.0 F Temperature Source Oral Pulse Rate [Left Brachial] 114 H Respiratory Rate 20 Blood Pressure [Left Arm] 193/107 H Blood Pressure Mean [Left Arm] 135 Blood Pressure Source [Left Arm] Automatic Cuff Blood Pressure Position [Left Arm] Sitting 02 Sat by Pulse Oximetry 96 Oxygen Delivery Method Room Air Medical Decision Narrative: Discusses CXR with patient and he declined at this time [facility] HPI - General Stated complaint: rib pain, ears ringing Time Seen by Provider: 08/07/20 16:33 Mode of Arrival: Ambulatory Source of Information: Patient Limitations: No Limitations Description of Symptoms (Recalled from Triage Doc. by RN): PATIENT C/O LEFT RIB PAIN WITH BREATHING AND BILATERAL EAR PAIN THAT STARTED TODAY. STATES HE DOES NOT FEEL GOOD HEENT Symptoms (Recalled from RN notes): Yes Resp Symptoms (Recalled from RN notes): Yes Skin Symptoms (Recalled from RN notes): No MS Symptoms (Recalled from RN notes): No Functional Status (Recalled from RN notes): WNL - History of Present Illness Provider Complaint: Patient states that he has been having bilateral ear pain, scratchy throat sinus pressure and pain at times in his left rib area when he takes a deep breath States that today he has been feeling achy all over so he came in to get checked checked State
[2020-08-07 16:47] VITALS: BP 170/98; PULSE 98; RESP 20; TEMP 37.2; O2SAT 96
[2020-08-07 21:15] LABS: UTC Influenza A Antigen Negative (Negative); UTC Influenza B Antigen Negative (Negative)
== END 2020-08-07 16:50 | disposition home or self-care (01) ==
PROVIDERS: Emergency Provider Nurse Practitioner; PCP Emergency Medicine
DX: J20.9 Acute bronchitis, unspecified (principal); J32.9 Chronic sinusitis, unspecified; H66.93 Otitis media, unspecified, bilateral; I10 Essential (primary) hypertension; Z79.899 Other long term (current) drug therapy
CPT/HCPCS: 87804; 99202; G0463

== ENCOUNTER → 2020-08-28 17:30 | Outpatient (CLI) | payer BC, SELFPAY ==
[2020-08-28 18:13] LABS: Basophils % 0.4 % (0.1-2.0); Eosinophils # 0.3 K/mm3 (0.0-0.4); Eosinophils % 2.7 % (0.1-12.0); Hematocrit 48.8 % (42.0-52.0); Hemoglobin 16.6 g/dL (14.1-18.0); Lymphocytes # 1.9 K/mm3 (0.7-4.5); Mean Corpuscular Hemoglobin 30.7 pg (27.0-31.2); Mean Corpuscular Volume 90.3 fl (80-94); Mean Platelet Volume 8.4 fl (7.4-10.4); Monocytes # 0.4 K/mm3 (0.1-1.0); Monocytes % 4.5 % (1.7-9.3); Neutrophils # 7.2 K/mm3 (1.8-7.8); Neutrophils % 73.4 % (37.0-80.0); Platelet Count 287 K/mm3 (142-424); Red Cell Distribution Width 14.3 % (11.5-17.5); White Blood Count 9.7 K/mm3 (4.8-10.8)
[2020-08-28 18:45] LABS: Alanine Aminotransferase 33 U/L (12-78); Albumin Level 4.4 g/dl (3.5-5.0); Albumin/Globulin Ratio 1.5 (1.1-1.8); Alkaline Phosphatase 112 U/L (38-126); Anion Gap 13.4 mEq/L (5-15); Aspartate Amino Transferase 28 U/L (17-59); Bilirubin,Total 0.4 mg/dl (0.2-1.3); Blood Urea Nitrogen 12 mg/dl (9-20); Calcium 9.6 mg/dl (8.4-10.2); Carbon Dioxide 28 mmol/L (22.0-30.0); Chloride 102 mmol/L (98-107); Estimated Glomerular Filt Rate 83 ml/min (>60); GFR (African American) 101 ML/MIN (>60); Glucose 148 mg/dl (74-100); Lactate Dehydrogenase 189 U/L (313-618); Potassium 4.4 mmoL/L (3.5-5.1); Sodium 139 mmol/L (136-145); Total Protein,Serum 7.4 g/dl (6.3-8.2)
[2020-08-28 19:36] LABS: Vitamin B12 953 pg/mL (239-931)
[2020-08-30 15:42] LABS: Haptoglobin 171 mg/dL (17-317)
== END ==
PROVIDERS: Visit Provider Internal Medicine Medical Oncology
DX: R16.1 Splenomegaly, not elsewhere classified (principal); E53.8 Deficiency of other specified B group vitamins
CPT/HCPCS: 36415; 80053; 82607; 83010; 83615; 85025

== ENCOUNTER 2020-09-29 13:37 | Emergency (ER) | payer BC, SELFPAY ==
[2020-09-29 13:48] VITALS: BP 151/99; PULSE 96; RESP 20; TEMP 37; O2SAT 98; BMI 40.0
--- NOTE | 2020-09-29 14:19 | HMH.EDUTC ---
[facility] Disposition Clinical Impression: Bilateral otitis media Qualifiers: Otitis media type: suppurative Chronicity: acute Recurrence: non-recurrent Spontaneous tympanic membrane rupture: without spontaneous rupture Qualified Code(s): H66.003 - Acute suppurative otitis media without spontaneous rupture of ear drum, bilateral Disposition: Home, Self-Care Condition on Discharge: Good Instructions: DI for Otitis Media (Middle Ear Infection)-Child Prescriptions: Cefdinir [Omnicef 300mg Capsule] 300 mg PO BID #20 cap Transmission Status: Pending to [facility] predniSONE [Prednisone 20mg Tab] 20 mg PO BID 5 Days #10 tab Transmission Status: Pending to [facility] Referrals: Deangelo Arias MD [Primary Care Provider] - Time of Disposition: 14:22 Medical Decision Making - Brock Inquiry Pt receiving controlled substance: No Vital Signs: 09/29/20 13:48 Temperature 98.6 F Temperature Source Oral Pulse Rate [Right Brachial] 96 H Respiratory Rate 20 Blood Pressure [Right Arm] 151/99 H Blood Pressure Mean [Right Arm] 116 Blood Pressure Source [Right Arm] Automatic Cuff Blood Pressure Position [Right Arm] Sitting 02 Sat by Pulse Oximetry 98 Oxygen Delivery Method Room Air [facility] HPI - General Stated complaint: ear pain Time Seen by Provider: 09/29/20 14:19 Mode of Arrival: Ambulatory Source of Information: Patient Limitations: No Limitations Description of Symptoms (Recalled from Triage Doc. by RN): Bilateral ear pain x3days HEENT Symptoms (Recalled from RN notes): Yes Resp Symptoms (Recalled from RN notes): No Skin Symptoms (Recalled from RN notes): No MS Symptoms (Recalled from RN notes): No Functional Status (Recalled from RN notes): wnl - History of Present Illness Provider Complaint: Bilateral ear pain X 3 days. Nasal congestion. No fever. Relieving factors: none Exacerbating factors: none Associated symptoms: denies other symptoms Treatments prior to arrival: none - Related Data Home Medications Medication Instructions Recorded Confirmed folic acid 1 mg tablet 1 mg PO DAILY tab 09/24/19 08/07/20 Amlodipine Besylate [Amlodipine 5 mg PO DAILY 08/07/20 08/07/20 5mg tab] Cholecalciferol (Vitamin D3) 25 mcg PO DAILY 08/07/20 08/07/20 [Vitamin D3 1,000 Unit Tab] Levothyroxine Sodium [Synthroid See Rx Instructions .ROUTE .COMPLEX 08/07/20 08/07/20 50mcg (0.05mg) tab] Previous Rx's Medication Instructions Recorded Albuterol Sulfate [Proventil-HFA 1 - 2 puffs IH Q4HP PRN #1 inh 08/07/20 90mcg/puff Inh] Azithromycin [Z-Leo 250mg Tab] 250 mg PO DIRECTED #6 tab 08/07/20 methylPREDNISolone [Medrol 4mg 4 mg PO DIRECTED #21 tab 08/07/20 tab] ergocalciferol (vitamin D2) 1,250 50,000 unit PO QWEEK #14 cap 09/21/20 mcg (50,000 unit) capsule Cefdinir [Omnicef 300mg Capsule] 300 mg PO BID #20 cap 09/29/20 predniSONE [Prednisone 20mg 20 mg PO BID 5 Days #10 tab 09/29/20 Tab] Allergies Allergy/AdvReac Type Severity Reaction Status Date / Time lisinopril Allergy Intermediate cough Verified 05/11/20 08:59 - Worker's Comp Is this a Worker's Comp case?: No [facility] History - Hepatitis A Screen Drug use history?: No High risk sexual behaviors?: No History of sexually transmitted infection?: No Currently employed?: No Childcare worker?: No Do you have indoor plumbing?: Yes Do you have electricity?: Yes Attestation statement:: This patient has been screened for Hepatitis A risk factors. I have reviewed the patient's past medical history: Yes Medical History: Reports:: Hypertension Denies:: Cancer, Diabetes Mellitus Type 1, Diabetes Mellitus Type 2, MRSA, Seizures Other Medical History: Denies: Blood Transfusion Reaction Laterality Cases: Bilateral: Other Other Surgeries: Yes: Cholecystectomy, Hernia Repair, Other Amputation: No Fractures: No Comment: spinal fusion, back - Social History Smoking Status:
[2020-09-29 14:25] VITALS: BP 151/99; PULSE 96; RESP 20; TEMP 37; O2SAT 98
== END 2020-09-29 14:26 | disposition home or self-care (01) ==
PROVIDERS: Emergency Provider Physician Assistant; PCP Emergency Medicine
DX: H66.003 Acute suppurative otitis media without spontaneous rupture of ear drum, bilateral (principal); I10 Essential (primary) hypertension; Z88.8 Allergy status to other drugs, medicaments and biological substances
CPT/HCPCS: 99202; G0463

== ENCOUNTER → 2020-10-16 10:54 | Outpatient (CLI) | payer BC, SELFPAY ==
[2020-10-16 11:12] LABS: Basophils # 0.1 K/mm3 (0-0.2); Basophils % 0.5 % (0.1-2.0); Eosinophils # 0.2 K/mm3 (0.0-0.4); Eosinophils % 1.7 % (0.1-12.0); Hematocrit 48.9 % (42.0-52.0); Hemoglobin 16.5 g/dL (14.1-18.0); Lymphocytes # 1.4 K/mm3 (0.7-4.5); Lymphocytes % 14.3 % (10-50); Mean Corpuscular HGB Conc 33.7 g/dL (31.8-35.4); Mean Corpuscular Hemoglobin 30.4 pg (27.0-31.2); Mean Corpuscular Volume 90.1 fl (80-94); Mean Platelet Volume 8.4 fl (7.4-10.4); Monocytes # 0.4 K/mm3 (0.1-1.0); Monocytes % 4.2 % (1.7-9.3); Neutrophils % 79.2 % (37.0-80.0); Platelet Count 248 K/mm3 (142-424); Red Blood Count 5.42 M/mm3 (4.60-6.20); Red Cell Distribution Width 14.3 % (11.5-17.5)
[2020-10-16 11:48] LABS: Alanine Aminotransferase 36 U/L (12-78); Albumin/Globulin Ratio 1.6 (1.1-1.8); Alkaline Phosphatase 122 U/L (38-126); Aspartate Amino Transferase 29 U/L (17-59); Bilirubin,Total 0.9 mg/dl (0.2-1.3); Blood Urea Nitrogen 13 mg/dl (9-20); Calcium 9.7 mg/dl (8.4-10.2); Carbon Dioxide 27 mmol/L (22.0-30.0); Chloride 104 mmol/L (98-107); Estimated Glomerular Filt Rate 75 ml/min (>60); GFR (African American) 90 ML/MIN (>60); Globulin 3.1 g/dL (1.3-3.2); Glucose 163 mg/dl (74-100); Lactate Dehydrogenase 189 U/L (313-618); Phosphorous 2.2 mg/dl (2.5-4.5); Sodium 141 mmol/L (136-145); Total Protein,Serum 8.1 g/dl (6.3-8.2)
[2020-10-16 12:53] LABS: Vitamin B12 883 pg/mL (239-931)
[2020-10-16 12:54] LABS: Folate > 20.00 ng/mL
[2020-10-17 14:21] LABS: Haptoglobin 219 mg/dL (17-317)
== END ==
PROVIDERS: Visit Provider Internal Medicine Medical Oncology
DX: D64.9 Anemia, unspecified (principal); E53.8 Deficiency of other specified B group vitamins
CPT/HCPCS: 36415; 80053; 82607; 82746; 83010; 83615; 83735; 84100; 85025

== ENCOUNTER 2021-01-20 15:31 | Emergency (ER) | payer BC, SELFPAY ==
[2021-01-20 15:32] VITALS: BP 173/102; PULSE 92; RESP 18; TEMP 37.3; O2SAT 99; BMI 44.1
--- NOTE | 2021-01-20 16:20 | HMH.EDUTC ---
[facility] [place] Disposition Clinical Impression: Left otitis media Qualifiers: Otitis media type: suppurative Chronicity: acute Recurrence: non-recurrent Spontaneous tympanic membrane rupture: without spontaneous rupture Qualified Code(s): H66.002 - Acute suppurative otitis media without spontaneous rupture of ear drum, left ear Disposition: Home, Self-Care Condition on Discharge: Good Instructions: DI for Otitis Media (Middle Ear Infection)-Child Prescriptions: Amoxicillin/Potassium Clav [Augmentin 875-125 Tablet] 1 tab PO Q12H 10 Days #20 tab Amoxicillin/Potassium Clav [Augmentin 875-125 Tablet] 1 tab PO Q12H 10 Days #20 tab Transmission Status: Pending to [id number] Referrals: Deangelo Arias MD [Primary Care Provider] - Time of Disposition: 16:28 Medical Decision Making - Brock Inquiry Pt receiving controlled substance: No [facility] HPI - General Stated complaint: lt ear pain Time Seen by Provider: 01/20/21 16:20 - History of Present Illness Provider Complaint: Left ear pain X 2 days. Has had fever. No vomiting or diarrhea. Onset (ago): day(s) (2) Relieving factors: none Exacerbating factors: none Associated symptoms: fever/chills Treatments prior to arrival: none - Related Data Home Medications Medication Instructions Recorded Confirmed Amlodipine Besylate [Amlodipine 5 mg PO DAILY 08/07/20 12/28/20 5mg tab] Cholecalciferol (Vitamin D3) 25 mcg PO DAILY 08/07/20 12/28/20 [Vitamin D3 1,000 Unit Tab] Previous Rx's Medication Instructions Recorded Albuterol Sulfate [Proventil-HFA 1 - 2 puffs IH Q4HP PRN #1 inh 08/07/20 90mcg/puff Inh] Azithromycin [Z-Leo 250mg Tab] 250 mg PO DIRECTED #6 tab 08/07/20 methylPREDNISolone [Medrol 4mg 4 mg PO DIRECTED #21 tab 08/07/20 tab] ergocalciferol (vitamin D2) 1,250 50,000 unit PO QWEEK #14 cap 09/21/20 mcg (50,000 unit) capsule Cefdinir [Omnicef 300mg Capsule] 300 mg PO BID #20 cap 09/29/20 predniSONE [Prednisone 20mg 20 mg PO BID 5 Days #10 tab 09/29/20 Tab] levothyroxine 50 mcg tablet See Rx Instructions .ROUTE 10/03/20 .COMPLEX #90 tablet folic acid 1 mg tablet 1 mg PO DAILY #90 tab 10/20/20 Amoxicillin/Potassium Clav 1 tab PO Q12H 10 Days #20 tab 01/20/21 [Augmentin 875-125 Tablet] Amoxicillin/Potassium Clav 1 tab PO Q12H 10 Days #20 tab 01/20/21 [Augmentin 875-125 Tablet] Allergies Allergy/AdvReac Type Severity Reaction Status Date / Time lisinopril Allergy Intermediate cough Verified 12/28/20 09:15 [facility] History - Hepatitis A Screen Attestation statement:: This patient has been screened for Hepatitis A risk factors. I have reviewed the patient's past medical history: Yes Medical History: Reports:: Hypertension Denies:: Cancer, Diabetes Mellitus Type 1, Diabetes Mellitus Type 2, MRSA, Seizures Other Medical History: Denies: Blood Transfusion Reaction Laterality Cases: Bilateral: Other Other Surgeries: Yes: Cholecystectomy, Hernia Repair, Other Amputation: No Fractures: No Comment: spinal fusion, back - Social History Smoking Status: Never smoker # Packs/Day (cigarettes): 1 Alcohol Intake: never Alcohol Intake Frequency:: holidays/special occasions only Substance Use Type: denies use Occupational Status: employed Housing: house Household Members: family Family Hx:: Diabetes, Heart Attack, Hypertension ROS Obtained: Yes All systems reviewed & no additional complaints - Constitutional Constitutional: Reports fever(s) - ENT Ears, Nose, Mouth, and Throat: Reports otalgia Physical Exam - General General appearance: alert, in no apparent distress - Head Head exam: normocephalic - Eye Eye exam: Present: PERRL - ENT ENT exam: Present: normal oropharynx - Expanded ENT Exam TM/Canal exam: Left TM: erythema Nose exam: Present: sinus tenderness - Respiratory Respiratory exam: Present: normal lung sounds bilaterally - Cardiovascular Cardiovascular exam: Present: r
[2021-01-20 16:32] VITALS: BP 173/102; PULSE 92; RESP 18; TEMP 37.5; O2SAT 99
== END 2021-01-20 16:36 | disposition home or self-care (01) ==
PROVIDERS: Emergency Provider Physician Assistant; PCP Emergency Medicine
DX: H66.002 Acute suppurative otitis media without spontaneous rupture of ear drum, left ear (principal)
CPT/HCPCS: 99202; G0463

== ENCOUNTER 2021-03-03 13:43 | Emergency (ER) | payer BC, SELFPAY ==
[2021-03-03 14:03] VITALS: BP 178/110; PULSE 97; RESP 16; TEMP 36.8; O2SAT 98; BMI 39.3
--- NOTE | 2021-03-03 14:22 | HMH.EDUTC ---
[facility] [place] Clinical Impression: Left otitis media Qualifiers: Otitis media type: suppurative Chronicity: acute Recurrence: non-recurrent Spontaneous tympanic membrane rupture: without spontaneous rupture Qualified Code(s): H66.002 - Acute suppurative otitis media without spontaneous rupture of ear drum, left ear Disposition: Home, Self-Care Condition on Discharge: Good Instructions: Middle Ear Infection Additional Instructions: Drink plenty of fluids. Take tylenol or ibuprofen for pain or fever. Take the medications as directed. Follow up with your regular doctor. GO TO THE ER FOR ANY WORSENING SYMPTOMS Prescriptions: methylPREDNISolone [Medrol] 4 mg PO DIRECTED 6 Days #21 tab.ds.pk Transmission Status: Received by [id number] Azithromycin [Z-Leo 250mg Tab*] 250 mg PO UD DOSE PK #6 tab Transmission Status: Received by [id number] Referrals: Deangelo Arias MD [Primary Care Provider] - Time of Disposition: 14:39 Medical Decision Making - Medical Records Medical records reviewed: No: I reviewed the patient's medical records. - Brock Inquiry Pt receiving controlled substance: No Vital Signs: 03/03/21 14:03 03/03/21 14:40 Temperature 98.3 F 98 F Temperature Source Oral Pulse Rate 80 Pulse Rate [Left] 97 H Respiratory Rate 16 18 Blood Pressure 168/101 H Blood Pressure [Right Arm] 178/110 H Blood Pressure Mean [Right Arm] 132 02 Sat by Pulse Oximetry 98 [facility] [place] - General Stated complaint: lt ear pain Time Seen by Provider: 03/03/21 14:23 Mode of Arrival: Ambulatory Source of Information: Patient Limitations: No Limitations Description of Symptoms (Recalled from Triage Doc. by RN): L ear pain and sinus pressure HEENT Symptoms (Recalled from RN notes): Yes (sinus pressure and L ear ache) Resp Symptoms (Recalled from RN notes): No Skin Symptoms (Recalled from RN notes): No MS Symptoms (Recalled from RN notes): No Functional Status (Recalled from RN notes): na - History of Present Illness Provider Complaint: He c/o left ear pain for the past 3 days. He has a history of getting ear infections in that ear kind of frequently. He denies any fever/chills/body aches. He does have some sinus congestion, but he denies a cough. - Related Data Home Medications Medication Instructions Recorded Confirmed Ergocalciferol (Vitamin D2) 50,000 unit PO QWEEK 01/20/21 [Drisdol] Previous Rx's Medication Instructions Recorded methylPREDNISolone [Medrol 4mg 4 mg PO DIRECTED #21 tab 08/07/20 tab] predniSONE [Prednisone 20mg 20 mg PO BID 5 Days #10 tab 09/29/20 Tab] Amoxicillin/Potassium Clav 1 tab PO Q12H 10 Days #20 tab 01/20/21 [Augmentin 875-125 Tablet] amlodipine 5 mg tablet See Rx Instructions .ROUTE 01/24/21 .COMPLEX #30 tablet folic acid 1 mg tablet See Rx Instructions .ROUTE 01/24/21 .COMPLEX #30 tab levothyroxine 50 mcg tablet See Rx Instructions .ROUTE 01/24/21 .COMPLEX #90 tablet cholecalciferol (vitamin D3) 25 See Rx Instructions .ROUTE 01/26/21 mcg (1,000 unit) tablet .COMPLEX #30 tablet Azithromycin [Z-Leo 250mg Tab*] 250 mg PO UD DOSE PK #6 tab 03/03/21 methylPREDNISolone [Medrol] 4 mg PO DIRECTED 6 Days #21 03/03/21 tab.ds.pk Allergies Allergy/AdvReac Type Severity Reaction Status Date / Time lisinopril Allergy Intermediate cough Verified 03/03/21 14:10 - Worker's Comp Is this a Worker's Comp case?: No [facility] History - Hepatitis A Screen Drug use history?: No High risk sexual behaviors?: No History of sexually transmitted infection?: No Currently employed?: No Childcare worker?: No Do you have indoor plumbing?: Yes Do you have electricity?: Yes Attestation statement:: This patient has been screened for Hepatitis A risk factors. I have reviewed the patient's past medical history: Yes Medical History: Reports:: Hypertension Denies:: Cancer, Diabetes Mellitus Type 1, Diabetes Mellit
[2021-03-03 14:40] VITALS: BP 168/101; PULSE 80; RESP 18; TEMP 36.6
== END 2021-03-03 14:42 | disposition home or self-care (01) ==
PROVIDERS: Emergency Provider Nurse Practitioner Family; PCP Emergency Medicine
DX: H66.002 Acute suppurative otitis media without spontaneous rupture of ear drum, left ear (principal); I10 Essential (primary) hypertension
CPT/HCPCS: 99202; G0463

== ENCOUNTER → 2021-03-23 13:39 | Outpatient (CLI) | payer BC, SELFPAY ==
[2021-03-23 14:48] LABS: Basophils # 0.1 K/mm3 (0-0.2); Basophils % 0.3 % (0.1-2.0); Hematocrit 47.2 % (42.0-52.0); Lymphocytes # 1.5 K/mm3 (0.7-4.5); Lymphocytes % 9.2 % (10-50); Mean Corpuscular HGB Conc 33.9 g/dL (31.8-35.4); Mean Corpuscular Hemoglobin 29.9 pg (27.0-31.2); Mean Corpuscular Volume 88.1 fl (80-94); Mean Platelet Volume 7.8 fl (7.4-10.4); Monocytes # 0.6 K/mm3 (0.1-1.0); Monocytes % 3.4 % (1.7-9.3); Neutrophils # 14.4 K/mm3 (1.8-7.8); Platelet Count 317 K/mm3 (142-424); Red Blood Count 5.35 M/mm3 (4.60-6.20); Red Cell Distribution Width 14.5 % (11.5-17.5); White Blood Count 16.5 K/mm3 (4.8-10.8)
[2021-03-23 14:57] LABS: MANUAL DIFFERENTIAL MANUAL DIFFERENTIAL (MANUAL DIFF)
[2021-03-23 15:02] LABS: Alanine Aminotransferase 25 U/L (12-78); Albumin Level 4.8 g/dl (3.5-5.0); Albumin/Globulin Ratio 1.7 (1.1-1.8); Alkaline Phosphatase 112 U/L (38-126); Anion Gap 15.5 mEq/L (5-15); Aspartate Amino Transferase 21 U/L (17-59); Bilirubin,Total 0.5 mg/dl (0.2-1.3); Blood Urea Nitrogen 17 mg/dl (9-20); Calcium 9.7 mg/dl (8.4-10.2); Carbon Dioxide 29 mmol/L (22.0-30.0); Chloride 101 mmol/L (98-107); Estimated Glomerular Filt Rate 83 ml/min (>60); GFR (African American) 101 ML/MIN (>60); Globulin 2.9 g/dL (1.3-3.2); Glucose 195 mg/dl (74-100); Potassium 4.5 mmoL/L (3.5-5.1); Sodium 141 mmol/L (136-145); Total Protein,Serum 7.7 g/dl (6.3-8.2)
[2021-03-23 15:43] LABS: Eosinophils % 1 % (0-3); Hypochromasia 1+; Lymphocytes % 7 % (10-50); Monocytes % 7 % (2-9); Neutrophils % 85 % (42-76); Platelet Estimate Normal; Total Cells Counted 100
[2021-03-23 15:50] LABS: Vitamin B12 540 pg/mL (239-931)
== END ==
PROVIDERS: Visit Provider Internal Medicine Medical Oncology
DX: E53.8 Deficiency of other specified B group vitamins (principal)
CPT/HCPCS: 36415; 80053; 82607; 85007; 85025

== ENCOUNTER → 2021-06-07 14:58 | Outpatient (CLI) | payer BC, SELFPAY ==
[2021-06-07 15:21] LABS: Basophils # 0.1 K/mm3 (0-0.2); Basophils % 0.5 % (0.1-2.0); Eosinophils # 0.1 K/mm3 (0.0-0.4); Eosinophils % 0.6 % (0.1-12.0); Hematocrit 49.5 % (42.0-52.0); Hemoglobin 16.2 g/dL (14.1-18.0); Lymphocytes # 1.4 K/mm3 (0.7-4.5); Lymphocytes % 12.7 % (10-50); Mean Corpuscular HGB Conc 32.8 g/dL (31.8-35.4); Mean Corpuscular Hemoglobin 30.8 pg (27.0-31.2); Mean Corpuscular Volume 93.8 fl (80-94); Mean Platelet Volume 8.3 fl (7.4-10.4); Monocytes # 0.5 K/mm3 (0.1-1.0); Monocytes % 4.3 % (1.7-9.3); Neutrophils # 8.8 K/mm3 (1.8-7.8); Neutrophils % 81.9 % (37.0-80.0); Platelet Count 281 K/mm3 (142-424); Red Blood Count 5.27 M/mm3 (4.60-6.20); Red Cell Distribution Width 14.3 % (11.5-17.5); White Blood Count 10.7 K/mm3 (4.8-10.8)
[2021-06-07 16:09] LABS: Alanine Aminotransferase 30 U/L (12-78); Albumin Level 4.5 g/dl (3.5-5.0); Albumin/Globulin Ratio 1.7 (1.1-1.8); Alkaline Phosphatase 105 U/L (38-126); Anion Gap 14.1 mEq/L (5-15); Aspartate Amino Transferase 35 U/L (17-59); Bilirubin,Total 0.4 mg/dl (0.2-1.3); Blood Urea Nitrogen 10 mg/dl (9-20); Carbon Dioxide 29 mmol/L (22.0-30.0); Chloride 101 mmol/L (98-107); Estimated Glomerular Filt Rate 94 ml/min (>60); GFR (African American) 114 ML/MIN (>60); Globulin 2.7 g/dL (1.3-3.2); Glucose 162 mg/dl (74-100); Potassium 4.1 mmoL/L (3.5-5.1); Sodium 140 mmol/L (136-145); Total Protein,Serum 7.2 g/dl (6.3-8.2)
[2021-06-07 16:59] LABS: Vitamin B12 605 pg/mL (239-931)
== END ==
PROVIDERS: Visit Provider Internal Medicine Medical Oncology
DX: E53.8 Deficiency of other specified B group vitamins (principal)
CPT/HCPCS: 36415; 80053; 82607; 85025

== ENCOUNTER → 2021-06-22 12:42 | Outpatient (CLI) | payer BC, SELFPAY | PROVIDERS: PCP Emergency Medicine; Visit Provider Nurse Practitioner | DX: Z20.822 Contact with and (suspected) exposure to COVID-19 (principal) | CPT/HCPCS: C9803; U0003; U0005 ==

== ENCOUNTER → 2021-07-17 15:34 | Outpatient (CLI) | payer BC, SELFPAY ==
[2021-07-17 16:32] LABS: Basophils # 0.1 K/mm3 (0-0.2); Basophils % 0.6 % (0.1-2.0); Eosinophils # 0.1 K/mm3 (0.0-0.4); Hemoglobin 15.8 g/dL (14.1-18.0); Lymphocytes # 1.8 K/mm3 (0.7-4.5); Lymphocytes % 16.9 % (10-50); Mean Corpuscular HGB Conc 33.6 g/dL (31.8-35.4); Mean Corpuscular Hemoglobin 29.9 pg (27.0-31.2); Mean Corpuscular Volume 89.1 fl (80-94); Mean Platelet Volume 8.1 fl (7.4-10.4); Monocytes # 0.6 K/mm3 (0.1-1.0); Monocytes % 5.1 % (1.7-9.3); Neutrophils # 8.3 K/mm3 (1.8-7.8); Neutrophils % 76.4 % (37.0-80.0); Platelet Count 308 K/mm3 (142-424); Red Blood Count 5.28 M/mm3 (4.60-6.20); Red Cell Distribution Width 13.6 % (11.5-17.5); White Blood Count 10.9 K/mm3 (4.8-10.8)
[2021-07-17 18:23] LABS: Alanine Aminotransferase 46 U/L (12-78); Albumin Level 4.4 g/dl (3.5-5.0); Albumin/Globulin Ratio 1.6 (1.1-1.8); Alkaline Phosphatase 118 U/L (38-126); Anion Gap 13.5 mEq/L (5-15); Aspartate Amino Transferase 45 U/L (17-59); Bilirubin,Total 0.4 mg/dl (0.2-1.3); Blood Urea Nitrogen 10 mg/dl (9-20); Calcium 9.4 mg/dl (8.4-10.2); Carbon Dioxide 30 mmol/L (22.0-30.0); Chloride 99 mmol/L (98-107); Estimated Glomerular Filt Rate 83 ml/min (>60); GFR (African American) 101 ML/MIN (>60); Globulin 2.7 g/dL (1.3-3.2); Glucose 155 mg/dl (74-100); Potassium 4.5 mmoL/L (3.5-5.1); Sodium 138 mmol/L (136-145); Total Protein,Serum 7.1 g/dl (6.3-8.2)
[2021-07-17 19:11] LABS: Vitamin B12 720 pg/mL (239-931)
== END ==
PROVIDERS: Visit Provider Internal Medicine Medical Oncology
DX: E53.8 Deficiency of other specified B group vitamins (principal)
CPT/HCPCS: 36415; 80053; 82607; 85025

== ENCOUNTER 2021-07-22 13:51 | Emergency (ER) | payer BC, SELFPAY ==
[2021-07-22 14:08] VITALS: BP 0/0; PULSE 0; RESP 0; TEMP -17.7; TEMP 0
== END 2021-07-22 14:09 | disposition left against medical advice (07) ==
LOC: UTC 13:53
PROVIDERS: Emergency Provider Nurse Practitioner Family; PCP Emergency Medicine
DX: Z53.21 Procedure and treatment not carried out due to patient leaving prior to being seen by health care provider (principal)

== ENCOUNTER → 2021-07-22 13:59 | Outpatient (CLI) | payer BC, SELFPAY | PROVIDERS: PCP Emergency Medicine; Visit Provider Nurse Practitioner Family | DX: U07.1 COVID-19 (principal) | CPT/HCPCS: C9803; U0003; U0005 ==

== ENCOUNTER 2021-10-07 09:00 | Emergency (ER) | payer BC, SELFPAY ==
[2021-10-07 09:00] VITALS: BP 201/124; PULSE 105; RESP 18; TEMP 36.9; O2SAT 96; BMI 44.1
--- NOTE | 2021-10-07 09:24 | HMH.EDUTC ---
[facility] [place] Impression: Strep sore throat Otitis media Qualifiers: Otitis media type: suppurative Chronicity: acute Laterality: left Recurrence: non-recurrent Spontaneous tympanic membrane rupture: without spontaneous rupture Qualified Code(s): H66.002 - Acute suppurative otitis media without spontaneous rupture of ear drum, left ear Disposition: Home, Self-Care Condition on Discharge: Good Instructions: Middle Ear Infection Additional Instructions: Start antibiotic as soon as possible and be sure to take as ordered for full length of time even though he should start feeling better in 24-48 hours. Tylenol or Motrin as needed for pain or fever Encourage fluids, water, Gatorade, Powerade, Pedialyte if /toddler/child Warm compresses often helps when placed over ear Return immediately for new or worsening symptoms no noticeable improvement in 48-72 hours and in 10-14 days to ensure the ears are return to baseline. Follow-up with primary care Prescriptions: Amoxicillin [Amoxicillin 500mg Tab] 500 mg PO BID 10 Days #20 tab Prescription Printed Referrals: Deangelo Arias MD [Primary Care Provider] - Time of Disposition: 09:35 Medical Decision Making - Brock Inquiry Pt receiving controlled substance: No Vital Signs: 10/07/21 09:00 Temperature 98.5 F Temperature Source Oral Pulse Rate [Left Brachial] 105 H Respiratory Rate 18 Blood Pressure [Left Arm] 201/124 H Blood Pressure Mean [Left Arm] 149 Blood Pressure Source [Left Arm] Automatic Cuff Blood Pressure Position [Left Arm] Sitting 02 Sat by Pulse Oximetry 96 Oxygen Delivery Method Room Air [facility] [place] - General Chief complaint: Urgent [facility] Center Stated complaint: left ear ache, sore throat, h/a, congestion Time Seen by Provider: 10/07/21 09:24 Mode of Arrival: Ambulatory Source of Information: Patient Limitations: No Limitations Description of Symptoms (Recalled from Triage Doc. by RN): PATIENT C/O LEFT EAR PAIN AND CONGESTION SINCE YESTERDAY MORNING HEENT Symptoms (Recalled from RN notes): Yes Resp Symptoms (Recalled from RN notes): No Skin Symptoms (Recalled from RN notes): No MS Symptoms (Recalled from RN notes): No Functional Status (Recalled from RN notes): WNL - History of Present Illness Provider Complaint: 41 yr old female presents for left ear pain and congestion since yesterday, pt states everyone at home has strep. pt states he has not taken his bp pill today and everytime he goes to dr his bp is high but it is normal when he checks it at home - Related Data Home Medications Medication Instructions Recorded Confirmed Ergocalciferol (Vitamin D2) 50,000 unit PO QWEEK 01/20/21 07/19/21 [Drisdol] Previous Rx's Medication Instructions Recorded levothyroxine 50 mcg tablet See Rx Instructions .ROUTE 03/13/21 .COMPLEX #90 tab cetirizine 10 mg tablet 10 mg PO QDAY 90 Days #90 tab 03/19/21 fluticasone propionate 50 1 spray INTRANASAL BID 30 Days 03/19/21 mcg/actuation nasal #9.9 g spray,suspension montelukast 10 mg tablet 10 mg PO HS 90 Days #90 tab 03/19/21 amlodipine 5 mg tablet See Rx Instructions .ROUTE 04/19/21 .COMPLEX #30 tab cholecalciferol (vitamin D3) 25 See Rx Instructions .ROUTE 09/24/21 mcg (1,000 unit) tablet .COMPLEX #30 tab folic acid 1 mg tablet See Rx Instructions .ROUTE 09/24/21 .COMPLEX #30 tab Amoxicillin [Amoxicillin 500mg Tab] 500 mg PO BID 10 Days #20 tab 10/07/21 Allergies Allergy/AdvReac Type Severity Reaction Status Date / Time lisinopril Allergy Intermediate cough Verified 07/19/21 09:04 - Worker's Comp Is this a Worker's Comp case?: No [facility] History - Hepatitis A Screen Drug use history?: No High risk sexual behaviors?: No History of sexually transmitted infection?: No Currently employed?: No Childcare worker?: No Do you have indoor plumbing?: Yes Do you have electricity?: Yes Attestation statement:: This patient has been screened for Hepatitis A
[2021-10-07 09:35] VITALS: BP 201/124; PULSE 105; RESP 18; TEMP 36.9; O2SAT 96
[2021-10-07 09:45] LABS: UTC Strep Screen (Rapid) Negative (Negative)
== END 2021-10-07 09:40 | disposition home or self-care (01) ==
PROVIDERS: Emergency Provider Nurse Practitioner Family; PCP Emergency Medicine
DX: J02.9 Acute pharyngitis, unspecified (principal); H66.002 Acute suppurative otitis media without spontaneous rupture of ear drum, left ear; I10 Essential (primary) hypertension; Z79.51 Long term (current) use of inhaled steroids; Z79.52 Long term (current) use of systemic steroids; Z79.899 Other long term (current) drug therapy; Z88.8 Allergy status to other drugs, medicaments and biological substances; Z98.1 Arthrodesis status
CPT/HCPCS: 87880; 99213; G0463

== ENCOUNTER 2021-10-21 10:05 | Emergency (ER) | payer BC, SELFPAY ==
[2021-10-21] VITALS (7 sets, daily range): BP systolic 145–183; BP diastolic 90–108; PULSE 69–102; RESP 18; TEMP 36.5–36.6; O2SAT 94–96; BMI 44.7
--- NOTE | 2021-10-21 10:17 | PC.NURSE ---
Rn getting triage now
[2021-10-21 11:02] LABS: Chloride 103 mmol/L (98-107); Sodium 137 mmol/L (136-145)
[2021-10-21 11:03] LABS: Potassium 4.4 mmoL/L (3.5-5.1)
[2021-10-21 11:05] LABS: Alanine Aminotransferase 41 U/L (12-78); Alkaline Phosphatase 127 U/L (38-126); Amylase 71 U/L (30-110); Anion Gap 9.4 mEq/L (5-15); Aspartate Amino Transferase 37 U/L (17-59); Blood Urea Nitrogen 9 mg/dl (9-20); Calcium 8.6 mg/dl (8.4-10.2); Carbon Dioxide 29 mmol/L (22.0-30.0); Creatinine Clearance Estimated 120 mL/min (50-200); Estimated Glomerular Filt Rate 93 ml/min (>60); GFR (African American) 113 ML/MIN (>60); Glucose 156 mg/dl (74-100)
[2021-10-21 11:06] LABS: Albumin Level 4.4 g/dl (3.5-5.0); Albumin/Globulin Ratio 1.4 (1.1-1.8); Globulin 3.2 g/dL (1.3-3.2); Lipase 87 U/L (23-300); Total Protein,Serum 7.6 g/dl (6.3-8.2)
[2021-10-21 11:15] LABS: Basophils # 0.1 K/mm3 (0-0.2); Eosinophils # 0.1 K/mm3 (0.0-0.4); Eosinophils % 0.7 % (0.1-12.0); Hematocrit 51.7 % (42.0-52.0); Hemoglobin 17.1 g/dL (14.1-18.0); Lymphocytes # 1.6 K/mm3 (0.7-4.5); Mean Corpuscular HGB Conc 33.1 g/dL (31.8-35.4); Mean Corpuscular Hemoglobin 30.2 pg (27.0-31.2); Mean Corpuscular Volume 91.2 fl (80-94); Mean Platelet Volume 8.8 fl (7.4-10.4); Monocytes # 0.5 K/mm3 (0.1-1.0); Monocytes % 4.8 % (1.7-9.3); Neutrophils # 8.1 K/mm3 (1.8-7.8); Neutrophils % 78.5 % (37.0-80.0); Platelet Count 288 K/mm3 (142-424); Red Blood Count 5.67 M/mm3 (4.60-6.20); Red Cell Distribution Width 14.5 % (11.5-17.5); White Blood Count 10.3 K/mm3 (4.8-10.8)
--- NOTE | 2021-10-21 11:35 | HMH.EDGENADL ---
ED Disposition Clinical Impression: Left upper quadrant abdominal pain, Mediastinal adenopathy, Ground glass opacity present on imaging of lung Disposition: Home, Self-Care Condition on Discharge: Good Instructions: DI for Acute Abdominal Pain Additional Instructions: Patient left without waiting for discharge instructions Referrals: Sabiha Mohr PA [Primary Care Provider] - - Critical Care Critical Care Time: No Attestation: On 10/21/21, the high probability of a clinically significant, sudden or life threatening deterioration of the following system(s) required my full and direct attention, intervention and personal management. The time I documented below is in addition to time spent performing reported procedures but includes the following listed in this critical care notation. Medical Decision Making - Brock Inquiry Pt receiving controlled substance: No Vital Signs: 10/21/21 10:05 10/21/21 10:31 10/21/21 12:43 Temperature 97.7 F Temperature Source Oral Pulse Rate 102 H 73 Pulse Rate [Left Radial] 98 H Respiratory Rate 18 Blood Pressure 147/103 H 148/99 H Blood Pressure [Right Arm] 183/106 H Blood Pressure Mean 116 Blood Pressure Mean [Right Arm] 131 Blood Pressure Source [Right Arm] Automatic Cuff Blood Pressure Position [Right Arm] Sitting 02 Sat by Pulse Oximetry 94 L 94 L 96 Oxygen Delivery Method Room Air - Lab Data Lab Results 10/21/21 10:20: WBC 10.3, RBC 5.67, Hgb 17.1, Hct 51.7, MCV 91.2, MCH 30.2, MCHC 33.1, RDW 14.5, Plt Count 288, MPV 8.8, Neut % (Auto) 78.5, Lymph % (Auto) 15.0, Evans % (Auto) 4.8, Eos % (Auto) 0.7, Baso % (Auto) 1.0, Neut # (Auto) 8.1 H, Lymph # (Auto) 1.6, Evans # (Auto) 0.5, Eos # (Auto) 0.1, Baso # (Auto) 0.1 10/21/21 10:20: Sodium 137, Potassium 4.4, Chloride 103, Carbon Dioxide 29, Anion Gap 9.4, BUN 9, Creatinine 0.90, Estimated Creat Clear 120, Estimated GFR 93, Est GFR ( Amer) 113, Glucose 156 H, Calcium 8.6, Total Bilirubin 1.0, AST 37, ALT 41, Alkaline Phosphatase 127 H, Total Protein 7.6, Albumin 4.4, Globulin 3.2, Albumin/Globulin Ratio 1.4, Amylase 71, Lipase 87 Result diagrams: 10/21/21 10:20 10/21/21 10:20 Orders (Tests/Meds): ED MEDICATIONS Discontinued Medications Generic Name Dose Route Start Last Admin Trade Name Gurvinderq PRN Reason Stop Dose Admin Lactated Ringer's 1,000 mls @ 999 mls/hr 10/21/21 11:00 10/21/21 11:09 Lactated Ringer's 1000 Ml Bag IV 10/21/21 12:00 999 mls/hr .Q1H1M [place] Administration Iopamidol 70 ml 10/21/21 12:08 10/21/21 12:09 Iopamidol-370 (76%);100ml Bottle IV 10/21/21 12:09 70 ml ONCE ONE Administration Ketorolac Tromethamine 30 mg 10/21/21 10:50 10/21/21 11:10 Ketorolac 30mg/Ml Vial IV 10/21/21 10:51 30 mg ONCE ONE Administration Ondansetron HCl 4 mg 10/21/21 10:50 10/21/21 11:09 Ondansetron 4mg/2ml Vial IV 10/21/21 10:51 4 mg ONCE ONE Administration Sodium Chloride 10 ml 10/21/21 12:08 10/21/21 12:09 Sodium Chloride 0.9% 10ml Syr (Rad Only) IV 10/21/21 12:09 10 ml ONCE ONE Administration Sodium Chloride 50 ml 10/21/21 12:08 10/21/21 12:09 0.9 % Sodium Chloride 50 Ml Vial IV 10/21/21 12:09 50 ml ONCE ONE Administration ORDERS Category Date Time Status Urinalysis and Microscopic Stat Lab 10/21/21 10:50 Ordered - Reevaluation(s) Time: 14:15 Reevaluation #1: Patient is sitting up in bed in no distress. Anxious to get results and relief. Discussed CT findings. Patient has lymphadenopathy on his CTA of his chest as well as nonspecific groundglass opacities of the lungs. He denies any acute pulmonary symptoms. Denies any cough or shortness of breath or fever. No current complaints except for left upper quadrant pain. States that he was treated for an ear infection a week or 2 ago. He says he did have some acute upper respiratory infection symptoms from that. Advised of need for follow-up with h
--- NOTE | 2021-10-21 11:47 | CT_ITS ---
PROCEDURE INFORMATION: Exam: CTA Chest With Contrast Exam date and time: 10/21/2021 12:11 PM Age: 41 years old Clinical indication: Pain; On breathing; Additional info: Luq/costal margin pain, worse with breathing TECHNIQUE: Imaging protocol: Computed tomographic angiography of the chest with contrast. 3D rendering (Not supervised by radiologist): MIP and/or 3D reconstructed images were created by the technologist. Radiation optimization: All CT scans at this facility use at least one of these dose optimization techniques: automated exposure control; mA and/or kV adjustment per patient size (includes targeted exams where dose is matched to clinical indication); or iterative reconstruction. Contrast material: ISOVUE; Contrast volume: 75 ml; Contrast route: INTRAVENOUS (IV); COMPARISON: CT ANGIO CHEST 08/10/2019 5:11 PM FINDINGS: Pulmonary arteries: Negative for acute pulmonary embolism. Aorta: Unremarkable. No aortic aneurysm. No aortic dissection. Lungs: Patchy groundglass densities bilaterally, nonspecific finding. Differential includes infectious process, chronic interstitial disease, and acute alveolar disease. Clinical correlation necessary. Pleural spaces: Unremarkable. No pneumothorax. No pleural effusion. Heart: Unremarkable. No cardiomegaly. No pericardial effusion. Lymph nodes: Mediastinal and right hilar lymphadenopathy, largest right hilar lymph node measures 2.6 x 1.3 cm. Bones/joints: Unremarkable. No acute fracture. Soft tissues: Unremarkable. Other findings: Previous granulomatous exposure. IMPRESSION: 1. Negative for acute pulmonary embolism. 2. Mediastinal and right hilar lymphadenopathy, largest right hilar lymph node measures 2.6 x 1.3 cm. 3. Patchy groundglass densities bilaterally, nonspecific finding. Differential includes infectious process, chronic interstitial disease, and acute alveolar disease. Clinical correlation necessary.
--- NOTE | 2021-10-21 11:47 | CT_ITS ---
PROCEDURE INFORMATION: Exam: CT Abdomen And Pelvis With Contrast Exam date and time: 10/21/2021 12:11 PM Age: 41 years old Clinical indication: Abdominal pain; Generalized; Additional info: Luq pain worse with breathing// pe chest and abd/pel with contrast- 75ml/ of 370 isovue given for study TECHNIQUE: Imaging protocol: Computed tomography of the abdomen and pelvis with contrast. Radiation optimization: All CT scans at this facility use at least one of these dose optimization techniques: automated exposure control; mA and/or kV adjustment per patient size (includes targeted exams where dose is matched to clinical indication); or iterative reconstruction. Contrast material: ISOVUE; Contrast volume: 75 ml; Contrast route: IV; COMPARISON: CT ABDOMEN PELVIS W CON 08/10/2019 5:11 PM FINDINGS: Liver: Normal. No mass. Gallbladder and bile ducts: Previous cholecystectomy. Pancreas: Normal. No ductal dilation. Spleen: Normal. No splenomegaly. Adrenal glands: Normal. No mass. Kidneys and ureters: Normal. No hydronephrosis. Stomach and bowel: Unremarkable. No obstruction. No mucosal thickening. Appendix: No evidence of appendicitis. Intraperitoneal space: Unremarkable. No free air. No significant fluid collection. Vasculature: Unremarkable. No abdominal aortic aneurysm. Lymph nodes: Unremarkable. No enlarged lymph nodes. Urinary bladder: Unremarkable as visualized. Reproductive: Unremarkable as visualized. Bones/joints: Surgical fusion L5-S1. Soft tissues: Unremarkable. IMPRESSION: No acute process.
== END 2021-10-21 15:21 | disposition home or self-care (01) ==
PROVIDERS: Emergency Provider Emergency Medicine; PCP Physician Assistant
DX: R10.11 Right upper quadrant pain (principal); R10.12 Left upper quadrant pain; I10 Essential (primary) hypertension; R16.1 Splenomegaly, not elsewhere classified; Z79.51 Long term (current) use of inhaled steroids; Z79.52 Long term (current) use of systemic steroids; Z79.899 Other long term (current) drug therapy; Z88.8 Allergy status to other drugs, medicaments and biological substances; Z98.1 Arthrodesis status; Z82.49 Family history of ischemic heart disease and other diseases of the circulatory system; Z83.3 Family history of diabetes mellitus
CPT/HCPCS: 71275; 74177; 80053; 82150; 83690; 85025; 96360; 96365; 96374; 96375; 99284; 99285; J2405; Q9967

== ENCOUNTER 2022-07-23 10:06 | Emergency (ER) | payer BC, SELFPAY ==
[2022-07-23 10:20] VITALS: BP 163/102; PULSE 92; RESP 18; TEMP 36.9; O2SAT 98; BMI 40.6
--- NOTE | 2022-07-23 10:30 | EXP.UTC ---
Discharge Plan Disposition Patient Disposition: Home, Self-Care Condition: Good Prescriptions Prescriptions: New amoxicillin-pot clavulanate 875-125 mg Tablet 1 tab PO Q12H Qty: 20 0RF fluticasone propionate [Flonase Allergy Relief] 50 mcg/actuation spray,suspension 1 spray intranasal DAILY Qty: 16 0RF Rx Instructions: administer into each nostril No Action amlodipine 5 mg tablet 5 mg PO DAILY levothyroxine 50 mcg tablet 50 mcg PO DAILY pantoprazole 40 mg tablet,delayed release (DR/EC) 40 mg PO DAILY cyanocobalamin (vitamin B-12) 1,000 mcg/mL solution 1,000 mcg SQ WEEKLY (DME) BD Luer-Michele Syringe 3 mL 25 gauge x 1 syringe MISCELLANEOUS folic acid 1 mg tablet 1 mg PO DAILY montelukast 10 mg tablet 10 mg PO DAILY Referrals Follow up/Referrals: Sabiha Mohr PA [Primary Care Provider] - See instructions Activity Restrictions/Add. Instructions Additional Instructions/Restrictions: *Monitor Temp, Over the counter Motrin or Tylenol as directed/as needed Tylenol every 4 hours and Motrin every 6 hours (as long as your family doctor has told you that you can take it) for fever or pain. and straight to ER if unable to lower temp less than 101.0 after medication given *Warm salt water gargles may help to soothe the throat *Throat Lozenges? *Warm fluids like tea with honey may help to soothe the throat? *Sleep elevated *Humidifier/Vaporizer Take medication as prescribed Follow up IMMEDIATELY for new or worsening symptoms or no Noticeable improvement over the next 48-72 hours. 911 for difficulty breathing or swallowing Clinical Impressions Clinical Impression: Bilateral otitis media Stand Alone Forms Stand Alone Forms: Work/School Release Instructions Patient Instructions: Middle Ear Infection Discharge ED Provider: Nancy Willis [facility] [place] HPI General Stated complaint: ear pain, SANDOVAL, dizzy Time Seen by Provider: 07/23/22 10:31 History of Present Illness Provider Complaint: Patient states that he has been having bilateral ear pain and feeling of fullness and certain ways he moves makes him feel a little dizzy States that he does this sometimes when he has an ear infection Related Data Home Medications Medication Instructions Recorded Confirmed amlodipine 5 mg tablet 5 mg PO DAILY Hypertension 07/23/22 07/23/22 cyanocobalamin (vitamin B-12) 1,000 mcg SQ WEEKLY Supplement 07/23/22 07/23/22 1,000 mcg/mL injection solution folic acid 1 mg tablet 1 mg PO DAILY Supplement 07/23/22 07/23/22 levothyroxine 50 mcg tablet 50 mcg PO DAILY THYROID 07/23/22 07/23/22 montelukast 10 mg tablet 10 mg PO DAILY Allergy symptoms 07/23/22 07/23/22 pantoprazole 40 mg tablet,delayed 40 mg PO DAILY GERD 07/23/22 07/23/22 release syringe with needle 3 mL 25 gauge 07/23/22 07/23/22 x 1 (BD Luer-Michele Syringe) Previous Rx's Medication Instructions Recorded amoxicillin 875 mg-potassium 1 tab PO Q12H #20 tabs 07/23/22 clavulanate 125 mg tablet fluticasone propionate 50 1 spray intranasal DAILY #16 grams 07/23/22 mcg/actuation nasal spray,suspension (Flonase Allergy Relief) Allergies Allergy/AdvReac Type Severity Reaction Status Date / Time lisinopril Allergy Intermediate cough Verified 02/28/22 10:46 [facility] Disclaimer: The information contained in this section may have been updated after the patient was seen, as this information can be updated by other users. Medical History (Updated 07/23/22 @ 10:54 by Nancy Willis APRN) Hypertension Surgical History (Updated 07/23/22 @ 10:33 by Cara Munroe RN) History of cholecystectomy History of hernia surgery Social History (Updated 07/23/22 @ 10:33 by Cara Munroe RN) Smoking Status: Never smoker alcohol intake: current substance use type: denies use current occupational status: employed Travel in the last 8 weeks: None
[2022-07-23 11:01] VITALS: BP 156/101; PULSE 98; RESP 19; TEMP 36.6; O2SAT 99
== END 2022-07-23 11:03 | disposition home or self-care (01) ==
PROVIDERS: Emergency Provider Nurse Practitioner; PCP Physician Assistant
DX: H66.92 Otitis media, unspecified, left ear (principal)
CPT/HCPCS: 99212; G0463

== ENCOUNTER → 2022-08-28 16:16 | Outpatient (CLI) | payer BC, SELFPAY | PROVIDERS: PCP Physician Assistant; Visit Provider Internal Medicine Medical Oncology | DX: D64.9 Anemia, unspecified (principal) | CPT/HCPCS: 36415 ==

== ENCOUNTER 2022-09-26 09:09 | Emergency (ER) | payer BC, SELFPAY ==
[2022-09-26] VITALS (7 sets, daily range): BP systolic 142–186; BP diastolic 90–121; PULSE 87–125; RESP 16; TEMP 36.5; O2SAT 91–96; BMI 41.8
--- NOTE | 2022-09-26 09:16 | HMH.EDGENADL ---
Discharge Plan Disposition Patient Disposition: Home, Self-Care Condition: Good Prescriptions Prescriptions: No Action montelukast 10 mg tablet See Rx Instructions .ROUTE .COMPLEX Qty: 30 3RF Dose Instruction: TAKE ONE TABLET BY MOUTH AT BEDTIME Rx Instructions: TAKE ONE TABLET BY MOUTH AT BEDTIME amlodipine 5 mg tablet See Rx Instructions .ROUTE .COMPLEX Qty: 30 3RF Dose Instruction: TAKE ONE TABLET BY MOUTH ONCE A DAY Rx Instructions: TAKE ONE TABLET BY MOUTH ONCE A DAY levothyroxine 50 mcg tablet 50 mcg PO DAILY pantoprazole 40 mg tablet,delayed release (DR/EC) 40 mg PO DAILY cyanocobalamin (vitamin B-12) 1,000 mcg/mL solution 1,000 mcg SQ WEEKLY (DME) BD Luer-Michele Syringe 3 mL 25 gauge x 1 syringe MISCELLANEOUS folic acid 1 mg tablet 1 mg PO DAILY amoxicillin-pot clavulanate 875-125 mg Tablet 1 tab PO Q12H Qty: 20 0RF fluticasone propionate [Flonase Allergy Relief] 50 mcg/actuation spray,suspension 1 spray intranasal DAILY Qty: 16 0RF Rx Instructions: administer into each nostril Referrals Follow up/Referrals: Sabiha Mohr PA [Primary Care Provider] - See instructions Activity Restrictions/Add. Instructions Additional Instructions/Restrictions: Your evaluation today did not yield an emergent medical condition or definitive cause of your symptoms, please continue to follow-up with your physicians that you have been seeing outpatient. Return with any significant worsening symptoms. Clinical Impressions Clinical Impression: Nonspecific abdominal pain, Acute hyperglycemia Instructions Patient Instructions: DI for Acute Abdominal Pain Discharge ED Provider: Andry Birch Adult HPI General Chief complaint: Abdominal Pain Stated complaint: LT abd pain Time Seen by Provider: 09/26/22 09:16 History of Present Illness HPI narrative: Patient is a 42-year-old male with a history of profound macrocytic anemia with a recent EGD and colonoscopy not demonstrating any specific etiology also with a history of mediastinal adenopathy who presents today with left-sided abdominal pain. States that symptoms have been ongoing for the past several days any type of movements significantly worsens his pain. States he has not had any fevers chills night sweats changes in bowel movements or urination. Denies any hematuria specifically denies any frequency urgency or dysuria. Did have a CT scan a few months ago which demonstrated some mediastinal adenopathy and groundglass opacities which are nonspecific. That was of his chest, his abdominal CT at that time revealed nothing specific. He is followed by Dr. Duarte with heme-onc for his anemia. Related Data Home Medications Medication Instructions Recorded Confirmed cyanocobalamin (vitamin B-12) 1,000 mcg SQ WEEKLY Supplement 07/23/22 07/23/22 1,000 mcg/mL injection solution folic acid 1 mg tablet 1 mg PO DAILY Supplement 07/23/22 07/23/22 levothyroxine 50 mcg tablet 50 mcg PO DAILY THYROID 07/23/22 07/23/22 pantoprazole 40 mg tablet,delayed 40 mg PO DAILY GERD 07/23/22 07/23/22 release syringe with needle 3 mL 25 gauge 07/23/22 07/23/22 x 1 (BD Luer-Michele Syringe) Previous Rx's Medication Instructions Recorded amoxicillin 875 mg-potassium 1 tab PO Q12H #20 tabs 07/23/22 clavulanate 125 mg tablet fluticasone propionate 50 1 spray intranasal DAILY #16 grams 07/23/22 mcg/actuation nasal spray,suspension (Flonase Allergy Relief) amlodipine 5 mg tablet See Rx Instructions .Route 09/24/22 .COMPLEX #30 tabs montelukast 10 mg tablet See Rx Instructions .Route 09/24/22 .COMPLEX #30 tabs Allergies Allergy/AdvReac Type Severity Reaction Status Date / Time lisinopril Allergy Intermediate cough Verified 02/28/22 10:46 [facility] Disclaimer: The information contained in this section may have been updated after the patient was seen, as this informa
[2022-09-26 09:20] LABS: Microscopic, Urine URINE MICROSCOPIC (MICROSCOPIC)
--- NOTE | 2022-09-26 09:22 | CT_ITS ---
FINAL REPORT TECHNIQUE: Axial CT images of the abdomen and pelvis were obtained after the administration of oral and iv contrast. Coronal reformatted images were also obtained and reviewed.This study was performed with techniques to keep radiation doses as low as reasonably achievable (ALARA). Individualized dose reduction techniques using automated exposure control or adjustment of mA and/or kV according to the patient's size were employed. CLINICAL HISTORY: left sided abd pain and tenderness COMPARISON: 10/21/2021 FINDINGS: CT OF THE ABDOMEN AND PELVIS WITH CONTRAST Abdomen: There is mild bibasilar scarring or atelectasis.. The heart is normal in size. The liver is fatty infiltrated.. Post cholecystectomy. The spleen is unremarkable. No adrenal mass is present. The pancreas has an unremarkable appearance. The kidneys are normal, without evidence of mass or hydronephrosis. The aorta is normal in caliber. There is no free fluid or adenopathy. There are two small supraumbilical hernias containing fat only. Pelvis: The appendix normal The urinary bladder is unremarkable. No inflammatory process is seen. There is no evidence of mass or adenopathy. There is no evidence of bowel obstruction. There are postoperative changes from fusion of L5-S1. There are small inguinal hernias containing fat. IMPRESSION: Mild bibasilar scarring or atelectasis. Fatty infiltration of the liver. Reviewed, Interpreted and Dictated by Enzo Smith III, MD Transcribed by Rowena Castellanos Authenticated and [facility]
--- NOTE | 2022-09-26 09:22 | PC.NURSE ---
[facility]
[2022-09-26 09:25] LABS: Appearance,Urine CLEAR (Clear); Blood, Urine Negative (Negative); Color,Urine YELLOW (Yellow); Glucose,Urine (UA) TRACE (Negative); Ketones,Urine 1+ (Negative); Leukocyte Esterase,Urine Negative (Negative); Nitrate,Urine Negative (Negative); PH,Urine 6.5 (5.0-8.5); Protein,Urine 2+ (Negative); Specific Gravity, Urine 1.025 (1.005-1.030)
[2022-09-26 09:35] LABS: Chloride 102 mmol/L (98-107); Sodium 137 mmol/L (136-145)
[2022-09-26 09:36] LABS: Potassium 4.4 mmoL/L (3.5-5.1)
[2022-09-26 09:37] LABS: Basophils # 0.1 K/mm3 (0-0.2); Basophils % 0.8 % (0.1-2.0); Eosinophils # 0.1 K/mm3 (0.0-0.4); Eosinophils % 1.2 % (0.1-12.0); Hematocrit 49.3 % (42.0-52.0); Hemoglobin 16.6 g/dL (14.1-18.0); Lymphocytes # 1.3 K/mm3 (0.7-4.5); Lymphocytes % 14.2 % (10-50); Mean Corpuscular HGB Conc 33.7 g/dL (31.8-35.4); Mean Corpuscular Hemoglobin 31.5 pg (27.0-31.2); Mean Corpuscular Volume 93.5 fl (80-94); Mean Platelet Volume 8.3 fl (7.4-10.4); Monocytes # 0.3 K/mm3 (0.1-1.0); Monocytes % 3.7 % (1.7-9.3); Neutrophils # 7.2 K/mm3 (1.8-7.8); Platelet Count 265 K/mm3 (142-424); Red Blood Count 5.27 M/mm3 (4.60-6.20); Red Cell Distribution Width 14.3 % (11.5-17.5)
[2022-09-26 09:38] LABS: Alanine Aminotransferase 38 U/L (12-78); Albumin Level 4.4 g/dl (3.5-5.0); Albumin/Globulin Ratio 1.4 (1.1-1.8); Alkaline Phosphatase 134 U/L (38-126); Anion Gap 9.4 mEq/L (5-15); Aspartate Amino Transferase 36 U/L (17-59); Bilirubin,Total 0.9 mg/dl (0.2-1.3); Blood Urea Nitrogen 7 mg/dl (9-20); Calcium 8.5 mg/dl (8.4-10.2); Carbon Dioxide 30 mmol/L (22.0-30.0); Creatinine Clearance Estimated 152 mL/min (50-200); Estimated Glomerular Filt Rate 124 ml/min (>60); GFR (African American) 150 ML/MIN (>60); Globulin 3.2 g/dL (1.3-3.2); Glucose 312 mg/dl (74-100); Lipase 181 U/L (23-300); Total Protein,Serum 7.6 g/dl (6.3-8.2)
--- NOTE | 2022-09-26 09:51 | PC.NURSE ---
PT STATES NO COMPLAINTS AT THIS TIME, AT BEDSIDE
[2022-09-26 09:52] LABS: Bilirubin,Urine Negative (Negative)
[2022-09-26 10:14] LABS: Mucus,Urine Trace /lpf; RBC,Urine Occasional #/hpf (0-3); Squamous Epithelial Cell,Urine Occasional #/hpf (0-5)
--- NOTE | 2022-09-26 11:00 | PC.NURSE ---
checked on pt setting at bedside talking to no complaints at this time
--- NOTE | 2022-09-26 12:23 | PC.NURSE ---
pt luis miguel douglass giving pain meds no other complaints
--- NOTE | 2022-09-26 12:59 | PC.NURSE ---
rounded on pt, no needs at this time, bp is elevated, pt and states that pt has this happen everytime that he is in the hospital but it is fine when he gets home, denies any associated symptoms at this time.
--- NOTE | 2022-09-26 13:08 | PC.NURSE ---
pt being discharged no complaints at this time
== END 2022-09-26 13:13 | disposition home or self-care (01) ==
PROVIDERS: Emergency Provider Student in an Organized Health Care Education/Training Program; PCP Physician Assistant
DX: R73.9 Hyperglycemia, unspecified (principal); R10.9 Unspecified abdominal pain; D64.9 Anemia, unspecified; I10 Essential (primary) hypertension; Z90.49 Acquired absence of other specified parts of digestive tract; Z87.891 Personal history of nicotine dependence
CPT/HCPCS: 74177; 80053; 81001; 83690; 85025; 96361; 96374; 96375; 96376; 99285; J2405; Q9967

== ENCOUNTER 2022-10-23 08:09 | Emergency (ER) | payer BC, SELFPAY ==
[2022-10-23 08:20] VITALS: BP 192/110; PULSE 111; RESP 16; TEMP 36.8; O2SAT 95; BMI 42.7
--- NOTE | 2022-10-23 08:48 | EXP.UTC ---
Discharge Plan Disposition Patient Disposition: Home, Self-Care Condition: Good Prescriptions Prescriptions: New cefdinir 300 mg capsule 300 mg PO BID Qty: 20 0RF fluticasone propionate [Flonase Allergy Relief] 50 mcg/actuation spray,suspension 1 spray intranasal DAILY Qty: 16 0RF Rx Instructions: administer into each nostril No Action ergocalciferol (vitamin D2) 1,250 mcg (50,000 unit) capsule 1,250 mcg PO montelukast 10 mg tablet See Rx Instructions .ROUTE .COMPLEX Qty: 30 3RF Dose Instruction: TAKE ONE TABLET BY MOUTH AT BEDTIME Rx Instructions: TAKE ONE TABLET BY MOUTH AT BEDTIME amlodipine 5 mg tablet See Rx Instructions .ROUTE .COMPLEX Qty: 30 3RF Dose Instruction: TAKE ONE TABLET BY MOUTH ONCE A DAY Rx Instructions: TAKE ONE TABLET BY MOUTH ONCE A DAY levothyroxine 50 mcg tablet 50 mcg PO DAILY pantoprazole 40 mg tablet,delayed release (DR/EC) 40 mg PO DAILY cyanocobalamin (vitamin B-12) 1,000 mcg/mL solution 1,000 mcg SQ WEEKLY (DME) BD Luer-Michele Syringe 3 mL 25 gauge x 1 syringe MISCELLANEOUS folic acid 1 mg tablet 1 mg PO DAILY amoxicillin-pot clavulanate 875-125 mg Tablet 1 tab PO Q12H Qty: 20 0RF fluticasone propionate [Flonase Allergy Relief] 50 mcg/actuation spray,suspension 1 spray intranasal DAILY Qty: 16 0RF Rx Instructions: administer into each nostril Referrals Follow up/Referrals: Sabiha Mohr PA [Primary Care Provider] - See instructions Activity Restrictions/Add. Instructions Additional Instructions/Restrictions: Take medication as prescribed Follow up with your Family Doctor if no improvement or any worsening of symptoms Return if needed Straight to ER if any life threatening symptoms Clinical Impressions Clinical Impression: Left otitis media Instructions Patient Instructions: Middle Ear Infection, Cefdinir Discharge ED Provider: [place] [facility] [place] Stated complaint: LT ear pain Mode of Arrival: Ambulatory Source of Information: Patient Limitations: No Limitations Time Seen by Provider: 10/23/22 08:48 Description of Symptoms (Recalled from Triage Doc. by RN): PATIENT C/O EAR PAIN X 2 DAYS HEENT Symptoms (Recalled from RN notes): Yes Resp Symptoms (Recalled from RN notes): No Skin Symptoms (Recalled from RN notes): No MS Symptoms (Recalled from RN notes): No Functional Status (Recalled from RN notes): WNL History of Present Illness Provider Complaint: Patient state that he has been having pain and pressure in his left ear for about 3 days states feels like it does when he gets an ear infection States that today his ear was hurting worse so he came in Related Data Home Medications Medication Instructions Recorded Confirmed cyanocobalamin (vitamin B-12) 1,000 mcg SQ WEEKLY Supplement 07/23/22 10/03/22 1,000 mcg/mL injection solution folic acid 1 mg tablet 1 mg PO DAILY Supplement 07/23/22 10/03/22 levothyroxine 50 mcg tablet 50 mcg PO DAILY THYROID 07/23/22 10/03/22 pantoprazole 40 mg tablet,delayed 40 mg PO DAILY GERD 07/23/22 10/03/22 release syringe with needle 3 mL 25 gauge 07/23/22 10/03/22 x 1 (BD Luer-Michele Syringe) ergocalciferol (vitamin D2) 1,250 1,250 mcg PO 10/03/22 10/03/22 mcg (50,000 unit) capsule Previous Rx's Medication Instructions Recorded amoxicillin 875 mg-potassium 1 tab PO Q12H #20 tabs 07/23/22 clavulanate 125 mg tablet fluticasone propionate 50 1 spray intranasal DAILY #16 grams 07/23/22 mcg/actuation nasal spray,suspension (Flonase Allergy Relief) amlodipine 5 mg tablet See Rx Instructions .Route 09/24/22 .COMPLEX #30 tabs montelukast 10 mg tablet See Rx Instructions .Route 09/24/22 .COMPLEX #30 tabs cefdinir 300 mg capsule 300 mg PO BID #20 caps 10/23/22 fluticasone propionate 50 1 spray intranasal DAILY #16 grams 10/23/22 mcg/actuation nasal spray,suspension (Flonase Allergy
[2022-10-23 09:05] VITALS: BP 178/98; PULSE 111; RESP 16; TEMP 36.8; O2SAT 95
== END 2022-10-23 09:08 | disposition home or self-care (01) ==
PROVIDERS: Emergency Provider Nurse Practitioner; PCP Physician Assistant
DX: H66.92 Otitis media, unspecified, left ear (principal); I10 Essential (primary) hypertension
CPT/HCPCS: 99212; 99214; G0463

== ENCOUNTER → 2022-12-11 16:34 | Outpatient (CLI) | payer BC, SELFPAY ==
--- NOTE | 2022-12-11 16:37 | XR_ITS ---
FINAL REPORT CLINICAL HISTORY: Right knee pain COMPARISON: None FINDINGS: Four views of the right knee show no evidence of an acute, displaced fracture or dislocation of the visualized bony architecture. The joint spaces appear normal. IMPRESSION: Unremarkable exam. Reviewed, Interpreted and Dictated by Los Magdaleno MD Transcribed by Rowena Castellanos Authenticated and [facility]
--- NOTE | 2022-12-11 16:37 | XR_ITS ---
FINAL REPORT CLINICAL HISTORY: right hip pain COMPARISON: None FINDINGS: RIGHT HIP Two views of the right hip demonstrate no acute fracture or dislocation. Moderate degenerative changes. Small areas of sclerosis and cystic change lateral femoral neck likely related to chronic impingement. The visualized bony structures are well aligned. No soft tissue abnormality is seen. IMPRESSION: Moderate degenerative changes with evidence of chronic femoral acetabular impingement. Reviewed, Interpreted and Dictated by Los Magdaleno MD Transcribed by Rowena Castellanos Authenticated and [facility]
== END ==
PROVIDERS: PCP Physician Assistant; Visit Provider Nurse Practitioner Family
DX: M25.551 Pain in right hip (principal); M25.561 Pain in right knee
CPT/HCPCS: 73502; 73564

== ENCOUNTER → 2022-12-16 12:26 | Outpatient (CLI) | payer BC, SELFPAY | PROVIDERS: PCP Physician Assistant; Visit Provider Physician Assistant | DX: R06.81 Apnea, not elsewhere classified (principal) | CPT/HCPCS: G0399 ==

== ENCOUNTER → 2023-05-01 14:04 | Outpatient (CLI) | payer BC, SELFPAY ==
[2023-05-01 14:30] LABS: Basophils # 0.1 K/mm3 (0-0.2); Basophils % 0.5 % (0.1-2.0); Eosinophils # 0.1 K/mm3 (0.0-0.4); Eosinophils % 0.9 % (0.1-12.0); Hematocrit 47.2 % (42.0-52.0); Hemoglobin 15.5 g/dL (14.1-18.0); Lymphocytes # 1.7 K/mm3 (0.7-4.5); Lymphocytes % 16.2 % (10-50); Mean Corpuscular HGB Conc 32.7 g/dL (31.8-35.4); Mean Corpuscular Hemoglobin 30.6 pg (27.0-31.2); Mean Corpuscular Volume 93.6 fl (80-94); Mean Platelet Volume 8.2 fl (7.4-10.4); Monocytes # 0.4 K/mm3 (0.1-1.0); Monocytes % 4.1 % (1.7-9.3); Neutrophils # 8.3 K/mm3 (1.8-7.8); Neutrophils % 78.2 % (37.0-80.0); Platelet Count 279 K/mm3 (142-424); Red Blood Count 5.05 M/mm3 (4.60-6.20); Red Cell Distribution Width 13.7 % (11.5-17.5); White Blood Count 10.6 K/mm3 (4.8-10.8)
[2023-05-01 15:45] LABS: Alanine Aminotransferase 35 U/L (12-78); Albumin Level 4.1 g/dl (3.5-5.0); Albumin/Globulin Ratio 1.5 (1.1-1.8); Alkaline Phosphatase 98 U/L (38-126); Anion Gap 12.9 mEq/L (5-15); Aspartate Amino Transferase 29 U/L (17-59); Bilirubin,Total 0.5 mg/dl (0.2-1.3); Blood Urea Nitrogen 9 mg/dl (9-20); Calcium 8.9 mg/dl (8.4-10.2); Carbon Dioxide 30 mmol/L (22.0-30.0); Chloride 101 mmol/L (98-107); Estimated Glomerular Filt Rate 107 ml/min (>60); GFR (African American) 129 ML/MIN (>60); Globulin 2.8 g/dL (1.3-3.2); Glucose 241 mg/dl (74-100); Potassium 3.9 mmoL/L (3.5-5.1); Sodium 140 mmol/L (136-145); Total Protein,Serum 6.9 g/dl (6.3-8.2)
[2023-05-01 16:33] LABS: Vitamin B12 974 pg/mL (239-931)
== END ==
LOC: LAB 14:05
PROVIDERS: PCP Physician Assistant; Visit Provider Internal Medicine Medical Oncology
DX: E53.8 Deficiency of other specified B group vitamins (principal); Z86.2 Personal history of diseases of the blood and blood-forming organs and certain disorders involving the immune mechanism
CPT/HCPCS: 36415; 80053; 82607; 85025

== ENCOUNTER 2023-07-22 09:12 | Emergency (ER) | payer SELFPAY ==
[2023-07-22 09:20] VITALS: BP 178/91; PULSE 94; RESP 18; TEMP 36.9; O2SAT 96; BMI 40.6
--- NOTE | 2023-07-22 09:41 | EXP.UTC ---
Discharge Plan Disposition Patient Disposition: Home, Self-Care Condition: Good Prescriptions Prescriptions: New benzonatate 100 mg capsule 100 mg PO TID PRN (Reason: cough) Qty: 30 0RF guaifenesin [Mucinex] 600 mg tablet extended release 12hr 1,200 mg PO BID PRN (Reason: cough) Qty: 20 0RF doxycycline monohydrate 100 mg capsule 100 mg PO BID 10 Days Qty: 20 0RF No Action cyanocobalamin (vitamin B-12) 1,000 mcg/mL solution 1,000 mcg SQ WEEKLY Qty: 10 5RF folic acid 1 mg tablet See Rx Instructions .ROUTE .COMPLEX Qty: 30 3RF Dose Instruction: TAKE ONE TABLET BY MOUTH ONCE A DAY FOR SUPPLEMENT Rx Instructions: TAKE ONE TABLET BY MOUTH ONCE A DAY FOR SUPPLEMENT metformin 500 mg tablet 500 mg PO BID Qty: 60 1RF (DME) Advanced Gluc Meter Test Strip Strip See Rx Instructions .Route Qty: 25 0RF Rx Instructions: As directed (DME) blood-glucose meter [Advanced Glucose Meter] Misc See Rx Instructions .Route Qty: 1 0RF Rx Instructions: As directed (DME) lancets [Accu-Chek Softclix Lancets] Misc See Rx Instructions .Route Qty: 100 0RF Rx Instructions: As directed cholecalciferol (vitamin D3) 25 mcg (1,000 unit) capsule 25 mcg PO DAILY Qty: 90 3RF cholecalciferol (vitamin D3) 1,250 mcg (50,000 unit) capsule 1,250 mcg PO WEEKLY Qty: 12 3RF (DME) Aqinject Safety Needle 25 gauge x 1 needle See Rx Instructions .Route Qty: 4 5RF Rx Instructions: As directed (DME) syringe with needle [BD Luer-Michele Syringe] 3 mL 23 gauge x 1 1/2 syringe See Rx Instructions .ROUTE .COMPLEX Qty: 4 5RF Dose Instruction: USE WEEKLY TO INJECT CYANOCOBALAMIN Rx Instructions: USE WEEKLY TO INJECT CYANOCOBALAMIN amlodipine 5 mg tablet See Rx Instructions .ROUTE .COMPLEX Qty: 30 3RF Dose Instruction: TAKE ONE TABLET BY MOUTH ONCE A DAY Rx Instructions: TAKE ONE TABLET BY MOUTH ONCE A DAY Referrals Follow up/Referrals: Sabiha Mohr PA [Primary Care Provider] - See instructions Activity Restrictions/Add. Instructions Additional Instructions/Restrictions: *Monitor Temp, Over the counter Motrin or Tylenol as directed/as needed Tylenol every 4 hours and Motrin every 6 hours (as long as your family doctor has told you that you can take it) for fever or pain. and straight to ER if unable to lower temp less than 101.0 after medication given *Warm salt water gargles may help to soothe the throat *Throat Lozenges? *Warm fluids like tea with honey may help to soothe the throat? *Sleep elevated *Humidifier/Vaporizer Follow up IMMEDIATELY for new or worsening symptoms or no Noticeable improvement over the next 48-72 hours. 911 for difficulty breathing or swallowing Clinical Impressions Clinical Impression: Bronchitis Sinusitis Qualifiers: Sinusitis location: unspecified location Chronicity: unspecified Qualified Code(s): J32.9 - Chronic sinusitis, unspecified Instructions Patient Instructions: Acute Bronchitis, DI for Sinusitis Discharge ED Provider: Nancy Willis [facility] [place] General Stated complaint: congestion,cough Mode of Arrival: Ambulatory Source of Information: Patient Limitations: No Limitations Time Seen by Provider: 07/22/23 09:41 Description of Symptoms (Recalled from Triage Doc. by RN): Symptoms are fever, cough, congestion, and body aches. He was exposed to RSV. HEENT Symptoms (Recalled from RN notes): Yes Resp Symptoms (Recalled from RN notes): No Skin Symptoms (Recalled from RN notes): No MS Symptoms (Recalled from RN notes): No Functional Status (Recalled from RN notes): n/a History of Present Illness Provider Complaint: Patient states that he was exposed to family member that has RSV States that he has been having sinus pain and pressure, cough, body aches, chills and feels like it is trying to move into his chest States that today
[2023-07-22 10:40] VITALS: BP 178/91; PULSE 100; RESP 18; TEMP 36.9; O2SAT 96
== END 2023-07-22 10:40 | disposition home or self-care (01) ==
PROVIDERS: Emergency Provider Nurse Practitioner; PCP Physician Assistant
DX: J20.9 Acute bronchitis, unspecified (principal); J01.90 Acute sinusitis, unspecified; R05.9 Cough, unspecified; R09.81 Nasal congestion; R50.9 Fever, unspecified; M79.18 Myalgia, other site; I10 Essential (primary) hypertension; E11.9 Type 2 diabetes mellitus without complications; Z68.41 Body mass index [BMI] 40.0-44.9, adult; Z79.84 Long term (current) use of oral hypoglycemic drugs; Z20.828 Contact with and (suspected) exposure to other viral communicable diseases
CPT/HCPCS: 99212; 99214; G0463

== ENCOUNTER 2024-04-02 09:46 | Outpatient (CLI) | payer OTHER, SELFPAY ==
[2024-04-02 18:46] LABS: Basophils # 0.1 K/mm3 (0-0.2); Basophils % 0.8 % (0.1-2.0); Eosinophils # 0.1 K/mm3 (0.0-0.4); Eosinophils % 1.1 % (0.1-12.0); Hematocrit 46.2 % (42.0-52.0); Hemoglobin 15.1 g/dL (14.1-18.0); Lymphocytes # 1.9 K/mm3 (0.7-4.5); Lymphocytes % 21.4 % (10-50); Mean Corpuscular HGB Conc 32.7 g/dL (31.8-35.4); Mean Corpuscular Hemoglobin 30.7 pg (27.0-31.2); Mean Corpuscular Volume 93.9 fl (80-94); Mean Platelet Volume 8.6 fl (7.4-10.4); Monocytes # 0.4 K/mm3 (0.1-1.0); Monocytes % 4.1 % (1.7-9.3); Neutrophils # 6.5 K/mm3 (1.8-7.8); Neutrophils % 72.6 % (37.0-80.0); Platelet Count 266 K/mm3 (142-424); Red Blood Count 4.92 M/mm3 (4.60-6.20); Red Cell Distribution Width 14.1 % (11.5-17.5); White Blood Count 8.9 K/mm3 (4.8-10.8)
[2024-04-02 19:15] LABS: Alanine Aminotransferase 22 U/L (12-78); Albumin/Globulin Ratio 1.4 (1.1-1.8); Alkaline Phosphatase 90 U/L (38-126); Anion Gap 8.1 mEq/L (5-15); Aspartate Amino Transferase 26 U/L (17-59); Bilirubin,Total 0.6 mg/dl (0.2-1.3); Blood Urea Nitrogen 10 mg/dl (9-20); Calcium 9.1 mg/dl (8.4-10.2); Carbon Dioxide 27 mmol/L (22.0-30.0); Chloride 110 mmol/L (98-107); Chol/HDL Ratio 6.8 (1-3.5); Cholesterol 183 mg/dl (140-200); Estimated Glomerular Filt Rate 82 ml/min (>60); GFR (African American) 99 ML/MIN (>60); Globulin 2.9 g/dL (1.3-3.2); Glucose 154 mg/dl (74-100); HDL Cholesterol 27 mg/dl (40-60); Potassium 4.1 mmoL/L (3.5-5.1); Sodium 141 mmol/L (136-145); Total Protein,Serum 6.9 g/dl (6.3-8.2); Triglycerides 242 mg/dl (30-150); VLDL Cholesterol 48 mg/dL (0-40)
[2024-04-02 19:26] LABS: Direct LDL Cholesterol 120.22 mg/dL (100-129)
[2024-04-02 19:36] LABS: 25-OH Vitamin D, Total 53.8 ng/mL (30-100)
[2024-04-02 20:29] LABS: Hemoglobin A1C 5.5 % (4.0-6.0)
[2024-04-02 21:34] LABS: Folate > 20.00 ng/mL; Vitamin B12 > 1000 pg/mL (239-931)
== END 2024-04-02 23:59 | disposition home or self-care (01) ==
LOC: LAB.DROPOF 04-05 09:46
PROVIDERS: PCP Student in an Organized Health Care Education/Training Program; Visit Provider Student in an Organized Health Care Education/Training Program
DX: E53.8 Deficiency of other specified B group vitamins (principal); E11.9 Type 2 diabetes mellitus without complications; I10 Essential (primary) hypertension
CPT/HCPCS: 80050; 80053; 80061; 82306; 82607; 82746; 83036; 84443; 85025

== ENCOUNTER 2024-06-12 04:06 | Emergency (ER) | payer OTHER, SELFPAY ==
[2024-06-12] VITALS (7 sets, daily range): BP systolic 164–197; BP diastolic 98–133; PULSE 66–79; RESP 13–20; TEMP 36.4–36.6; O2SAT 97–98; BMI 36.6
--- NOTE | 2024-06-12 04:15 | ECG_ITS ---
APPROVED REPORT Exam: Resting ECG HR:71 bpm ECG Measurements Heart Rate 71 AXES AK 176 P 50 QRSd 87 QRS 54 QT 371 T 24 QTc 393 Conclusion SINUS RHYTHM ANTEROSEPTAL MYOCARDIAL INFARCTION , OF INDETERMINATE AGE [40+ ms Q WAVE IN V1-V4] Isolated T wave inversion in lead III No STEMI Electronically signed by : MICKEY BIRMINGHAM, 06/13/2024 04:27:38
--- NOTE | 2024-06-12 04:18 | XR_ITS ---
PROCEDURE INFORMATION: Exam: XR Left Shoulder Exam date and time: 06/12/2024 5:29 AM Age: 43 years old Clinical indication: Pain; Shoulder; Left TECHNIQUE: Imaging protocol: Radiologic exam of the left shoulder. Views: 2 or more views. COMPARISON: CR XR CHEST 2V 06/12/2024 4:33 AM FINDINGS: Bones/joints: Normal. Soft tissues: Normal. IMPRESSION: No acute findings.
--- NOTE | 2024-06-12 04:18 | XR_ITS ---
PROCEDURE INFORMATION: Exam: XR Chest Exam date and time: 06/12/2024 4:33 AM Age: 43 years old Clinical indication: Pain; Chest pressure; Additional info: Shoulder pain/cardiac TECHNIQUE: Imaging protocol: Radiologic exam of the chest. Views: 2 views. COMPARISON: CT ANGIO CHEST PE PROTOCOL 10/21/2021 12:11 PM FINDINGS: Lungs: Unremarkable. No consolidation. Pleural spaces: Unremarkable. No pleural effusion. No pneumothorax. Heart/Mediastinum: Unremarkable. No cardiomegaly. Bones/joints: Unremarkable. IMPRESSION: No acute findings.
--- NOTE | 2024-06-12 04:20 | PC.NURSE ---
[facility] Skin pink warm and dry. Resp full and easy Speech clear and appropriate
[2024-06-12 04:33] LABS: Basophils # 0.1 K/mm3 (0-0.2); Basophils % 0.8 % (0.1-2.0); Eosinophils # 0.2 K/mm3 (0.0-0.4); Eosinophils % 1.7 % (0.1-12.0); Hemoglobin 16.3 g/dL (14.1-18.0); Lymphocytes # 2.2 K/mm3 (0.7-4.5); Lymphocytes % 20.6 % (10-50); Mean Corpuscular Hemoglobin 30.9 pg (27.0-31.2); Mean Platelet Volume 7.9 fl (7.4-10.4); Monocytes # 0.6 K/mm3 (0.1-1.0); Monocytes % 5.9 % (1.7-9.3); Neutrophils # 7.7 K/mm3 (1.8-7.8); Platelet Count 268 K/mm3 (142-424); Red Blood Count 5.28 M/mm3 (4.60-6.20); Red Cell Distribution Width 13.9 % (11.5-17.5); White Blood Count 10.8 K/mm3 (4.8-10.8)
[2024-06-12 04:37] LABS: Alanine Aminotransferase 20 U/L (12-78); Albumin Level 4.4 g/dl (3.5-5.0); Albumin/Globulin Ratio 1.5 (1.1-1.8); Alkaline Phosphatase 102 U/L (38-126); Anion Gap 11.3 mEq/L (5-15); Aspartate Amino Transferase 24 U/L (17-59); Bilirubin,Total 0.8 mg/dl (0.2-1.3); Blood Urea Nitrogen 12 mg/dl (9-20); Carbon Dioxide 27 mmol/L (22.0-30.0); Chloride 106 mmol/L (98-107); Creatinine Clearance Estimated 185 mL/min (50-200); Estimated Glomerular Filt Rate 93 ml/min (>60); GFR (African American) 112 ML/MIN (>60); Globulin 2.9 g/dL (1.3-3.2); Glucose 106 mg/dl (74-100); Potassium 4.3 mmoL/L (3.5-5.1); Sodium 140 mmol/L (136-145); Total Protein,Serum 7.3 g/dl (6.3-8.2)
--- NOTE | 2024-06-12 04:42 | ED_ITS ---
Discharge Plan Disposition Patient Disposition: Home, Self-Care Condition: Good Prescriptions Prescriptions: New sulfamethoxazole-trimethoprim 800-160 mg tablet 1 tab PO BID Qty: 14 0RF No Action (DME) Advanced Gluc Meter Test Strip Strip See Rx Instructions .Route Qty: 25 0RF Rx Instructions: As directed (DME) blood-glucose meter [Advanced Glucose Meter] Misc See Rx Instructions .Route Qty: 1 0RF Rx Instructions: As directed (DME) lancets [Accu-Chek Softclix Lancets] Misc See Rx Instructions .Route Qty: 100 0RF Rx Instructions: As directed fluticasone propionate [Allergy Relief (fluticasone)] 50 mcg/actuation spray,suspension 1 spray intranasal DAILY Qty: 16 3RF amlodipine 5 mg tablet See Rx Instructions .ROUTE .COMPLEX Qty: 90 3RF Dose Instruction: TAKE ONE TABLET BY MOUTH ONCE A DAY Rx Instructions: TAKE ONE TABLET BY MOUTH ONCE A DAY cholecalciferol (vitamin D3) 25 mcg (1,000 unit) capsule 25 mcg PO DAILY Qty: 90 3RF cholecalciferol (vitamin D3) 1,250 mcg (50,000 unit) capsule 1,250 mcg PO WEEKLY Qty: 12 3RF cyanocobalamin (vitamin B-12) 1,000 mcg/mL solution 1,000 mcg SQ WEEKLY Qty: 10 5RF folic acid 1 mg tablet See Rx Instructions .ROUTE .COMPLEX Qty: 90 1RF Dose Instruction: TAKE ONE TABLET BY MOUTH ONCE A DAY FOR SUPPLEMENT Rx Instructions: TAKE ONE TABLET BY MOUTH ONCE A DAY FOR SUPPLEMENT (DME) syringe with needle [BD Luer-Michele Syringe] 3 mL 23 gauge x 1 1/2 syringe See Rx Instructions .ROUTE .COMPLEX Qty: 4 5RF Dose Instruction: USE WEEKLY TO INJECT CYANOCOBALAMIN Rx Instructions: USE WEEKLY TO INJECT CYANOCOBALAMIN (DME) Aqinject Safety Needle 25 gauge x 1 needle See Rx Instructions .Route Qty: 4 5RF Rx Instructions: As directed Referrals Follow up/Referrals: Odalys Capps PA [Primary Care Provider] - See instructions (follow up culture results, consider sleep study, patient desaturated in ER when sleeping) Roger Fall DO [Staff Physician] - See instructions (L shoulder pain, ? rotator cuff injury) Activity Restrictions/Add. Instructions Additional Instructions/Restrictions: You were evaluated in the ER and are appropriate for discharge at this time. Take Tylenol, ibuprofen if needed for pain, do not exceed the recommended dose on the bottle. Each time you take these medications make sure you drink water and eat a snack to prevent side effects. Take the prescribed antibiotics as directed, do not skip doses, do not stop taking them early. Keep the wound clean and dry. You can shower/bathe like normal. Please continue to follow-up with dermatology as scheduled. Make an appointment with Dr. Fall for reevaluation of the shoulder. Also make an appointment with your primary care doctor for reevaluation to follow-up chronic problems as well as to discuss possible sleep study. Return to the ER with new, worsening, or otherwise concerning symptoms. Clinical Impressions Clinical Impression: Left shoulder pain, Abscess Print Language Print Language: Slovenian Discharge ED Provider: Nafisa Bhakta General Adult HPI General Chief complaint: PAIN Stated complaint: L shoulder pain Time Seen by Provider: 06/12/24 04:18 Mode of Arrival: Ambulatory Source of Information: Patient Limitations: No Limitations Description of Symptoms (Recalled from ER Triage Doc. by RN): Pt having acute left shoulder pain with no known injury History of Present Illness HPI narrative: 43-year-old male with history of lumbar spinal fusion, degenerative changes of the hips, hypertension, B12 deficiency presents to the ER for complaints of left shoulder pain that has been progressively worsening over the last 2 to 3 days. 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 He does not recall any injuries or specific sudden onset, however he is left-hand dominant and is having left-sided shoulder pain. He reports this is the side where he carries most things and uses the side dominantly. He reports he has not had pain like this previously. He states he took a Flexeril a few hours ago hoping for relief but has not had any. He reports usually this medication knocks him out . He states he took Tylenol and ibuprofen a day ago. He does report that raising the left arm above the head worsens the pain in the shoulder. Patient also reports a lesion on the left shoulder that has developed in the last week. He states he has had 1 like this previously that started to improve on its own and then his primary put him on antibiotics for it without ever opening it or culturing it. Patient states he has follow-up in August with dermatology for development of these lesions since he has had them in the past and had a random one under his right breast a while ago as well. Patient denies fevers, chills, difficulty breathing. He states he does not have chest pain, the pain is isolated to his right shoulder blade and he states his left hand feels funny but he has full strength and no numbness. He reports no nausea, vomiting, diarrhea, or any other associated symptoms. He has not had headache, dizziness, numbness, tingling, or weakness. Related Data Previous Rx's ?Medication ?Instructions ?Recorded safety needles 25 gauge x 1 #4 ea 05/26/23 (Aqinject Safety Needle) blood sugar diagnostic (Advanced #25 ea 07/09/23 Glucose Meter Test Strips) blood-glucose meter (Advanced #1 ea 07/09/23 Glucose Meter) lancets (Accu-Chek Softclix #100 ea 07/10/23 Lancets) fluticasone propionate 50 1 spray intranasal DAILY #16 grams 10/20/23 mcg/actuation nasal spray,suspension (Allergy Relief (fluticasone)) amlodipine 5 mg tablet See Rx Instructions .Route 04/02/24 .COMPLEX #90 tabs cholecalciferol (vitamin D3) 1,250 1,250 mcg PO WEEKLY vitamin d 04/02/24 mcg (50,000 unit) capsule deficiency #12 caps cholecalciferol (vitamin D3) 25 25 mcg PO DAILY vitamin d 04/02/24 mcg (1,000 unit) capsule deficiency #90 caps cyanocobalamin (vitamin B-12) 1,000 mcg SQ WEEKLY #10 mL 04/02/24 1,000 mcg/mL injection solution folic acid 1 mg tablet See Rx Instructions .Route 04/02/24 .COMPLEX #90 tabs syringe with needle 3 mL 23 gauge #4 ea 04/02/24 x 1 1/2 (BD Luer-Michele Syringe) sulfamethoxazole 800 1 tab PO BID #14 tabs 06/12/24 mg-trimethoprim 160 mg tablet Allergies Allergy/AdvReac Type Severity Reaction Status Date / Time lisinopril Allergy Intermediate cough Verified 04/02/24 14:57 [facility] Disclaimer: The information contained in this section may have been updated after the patient was seen, as this information can be updated by other users. Medical History B12 deficiency History of hemolytic anemia Right hip pain Greater trochanteric bursitis of right hip Fusion of lumbar spine Diabetes Chronic lumbar radiculopathy Elevated hemoglobin A1c Hypertension Surgical History History of hernia surgery History of cholecystectomy Family History Family/Other Hypertension Diabetes Social History Smoking Status: Former smoker alcohol intake: current alcohol intake frequency: holidays/special occasions only substance use type: denies use current occupational status: employed Travel in the last 8 weeks: None household members: family housing: house marital status: current occupation: concrete Other Medical History Have you received the Flu Vaccine for this season: No Have you received the Pneumonia Vaccine: No ROS Obtained: Yes All systems reviewed & no additional complaints except as documented ROS per HPI Physical Exam General General appearance: alert and in no apparent distress Head Head exam: atraumatic and normocephalic Eye Eye exam: Present PERRL and EOMI ENT ENT exam: Present mucous membranes moist Neck Neck exam: Present normal inspection and full ROM; Absent tenderness or lymphadenopathy Chest Chest inspection: Present symmetric chest wall rise; Absent tenderness Respiratory Respiratory exam: Present normal lung sounds bilaterally; Absent respiratory distress, wheezes or stridor Cardiovascular Cardiovascular exam: Present regular rate and normal rhythm Abdominal Exam Abdominal exam: Present soft; Absent distention, tenderness, guarding or rebound Extremities Exam Extremities exam: Present full ROM; Absent tenderness (Thorough palpation of the left shoulder, neck, shoulder blade area, upper back does not elicit any pain, range of motion was full, raising patient's arm over his head does cause pain), edema or joint swelling Back Exam Back 1 view image: 2 1. induration and fluctuance Neurological Exam Neurological exam: Present alert and oriented X3; Absent motor sensory deficit Psychiatric Psychiatric exam: Present normal affect and normal mood Skin Skin exam: Present warm, dry and other (1 cm area of raised fluctuance on the left trapezius with 2 cm area of surrounding induration, tender) Medical Decision Making Medical Records Medical records reviewed: Yes I reviewed the patient's medical records. Screening: Per USPSTF and CDC recommendations, given the prevalence of disease in our region, it is our hospital?s policy to screen for HIV and viral Hepatitis for all patients aged 18 and over and those with ongoing risk factors. MR Comment: Most recent note from Odalys Caballerom demonstrates patient is a diabetic, patient was referred to hematology and amlodipine was refilled at his last visit with her in March. Review of records demonstrates he has not yet followed up with hematology within our system. Brock Inquiry Pt receiving controlled substance: No Vital Signs: 06/12/24 04:15 06/12/24 04:20 06/12/24 04:25 Temperature 97.6 F 97.6 F Temperature Source Oral Pulse Rate 68 79 Pulse Rate [Right Brachial] 73 Respiratory Rate 20 20 Blood Pressure 190/118 H Blood Pressure [Right Arm] 192/107 H Blood Pressure Mean [Right Arm] 135 Blood Pressure Source Manual Cuff/ Auscultation Blood Pressure Source [Right Arm] Automatic Cuff Blood Pressure Position Sitting 02 Sat by Pulse Oximetry 98 97 98 Oxygen Delivery Method Room Air 06/12/24 04:50 06/12/24 05:00 06/12/24 05:00 Temperature Temperature Source Pulse Rate 72 66 Pulse Rate [Right Brachial] Respiratory Rate 16 Blood Pressure 188/117 H 197/113 H 197/133 H Blood Pressure [Right Arm] Blood Pressure Mean [Right Arm] Blood Pressure Source Blood Pressure Source [Right Arm] Blood Pressure Position 02 Sat by Pulse Oximetry 97 98 Oxygen Delivery Method 06/12/24 05:09 Temperature Temperature Source Pulse Rate 71 Pulse Rate [Right Brachial] Respiratory Rate 13 Blood Pressure 164/106 H Blood Pressure [Right Arm] Blood Pressure Mean [Right Arm] Blood Pressure Source Blood Pressure Source [Right Arm] Blood Pressure Position 02 Sat by Pulse Oximetry 98 Oxygen Delivery Method Lab Data Lab Results 06/12/24 04:20: WBC 10.8, RBC 5.28, Hgb 16.3, Hct 48.0, MCV 91.0, MCH 30.9, MCHC 34.0, RDW 13.9, Plt Count 268, MPV 7.9, Neut % (Auto) 71.0, Lymph % (Auto) 20.6, [place] % (Auto) 5.9, Eos % (Auto) 1.7, Baso % (Auto) 0.8, Neut # (Auto) 7.7, Lymph # (Auto) 2.2, [place] # (Auto) 0.6, Eos # (Auto) 0.2, Baso # (Auto) 0.1, D-Dimer 0.56 H, Sodium 140, Potassium 4.3, Chloride 106, Carbon Dioxide 27, Anion Gap 11.3, BUN 12, Creatinine 0.90, Estimated Creat Clear 185, Estimated GFR 93, Est GFR ( Amer) 112, Glucose 106 H, Calcium 9.0, Total Bilirubin 0.8, AST 24, ALT 20, Alkaline Phosphatase 102, Troponin I < 0.01, Total Protein 7.3, Albumin 4.4, Globulin 2.9, Albumin/Globulin Ratio 1.5 06/12/24 04:20 06/12/24 04:20 Orders (Tests/Meds): ED MEDICATIONS Discontinued Medications Generic Name Dose Route Start Last Admin Trade Name Freq PRN Reason Stop Dose Admin Ketorolac Tromethamine 30 mg 06/12/24 05:51 06/12/24 05:53 Ketorolac 30mg/Ml Vial IV 06/12/24 05:52 30 mg ONCE ONE Administration Labetalol HCl 10 mg 06/12/24 04:23 06/12/24 05:00 Labetalol 20mg/4ml Syringe IV 06/12/24 04:24 10 mg ONCE ONE Administration Ondansetron HCl 4 mg 06/12/24 04:44 06/12/24 04:52 Ondansetron 4mg/2ml Vial IV 06/12/24 04:45 4 mg ONCE ONE Administration Trimethoprim/Sulfamethoxazole 1 each 06/12/24 04:54 06/12/24 04:56 Sulfa/Trimethoprim 1 Tablet PO 06/12/24 04:55 1 each ONCE ONE Administration ORDERS Category Date Time Status CXR 2 view (NOT portable) [XR chest 2V] Stat Exams 06/12/24 04:18 Completed POCUS Point of Care (ER Only) Stat Exams 06/12/24 04:23 Ordered Shoulder XR left minimum 2 views [XR shoulder LT min 2V Exams 06/12/24 04:18 Completed ] Stat CBC w/Auto Diff [Complete Blood Count Auto Diff] Stat Lab 06/12/24 04:20 Completed CMP [Comprehensive Metabolic Panel] Stat Lab 06/12/24 04:20 Completed D-Dimer Stat Lab 06/12/24 04:20 Completed HIV (1&2) Antibody Rapid Stat Lab 06/12/24 04:20 Received Hep C Ab with Reflex to RNA Stat Lab 06/12/24 04:20 Received Trop I [Troponin I] Stat Lab 06/12/24 04:20 Completed Troponin I Q3H Lab 06/12/24 07:30 Ordered Troponin I Q3H Lab 06/12/24 10:30 Ordered Wound Culture and Gram Stain Stat Micro 06/12/24 04:43 Received Medical Decision Narrative: In summary, this 43-year-old male with comorbidities as described in HPI presents to the emergency department today with complaints of left shoulder pain as well as lesion on the left trapezius muscle. On initial evaluation patient is hypertensive but otherwise hemodynamically stable, afebrile, overall well- appearing, I can reproduce patient's shoulder pain with range of motion exercises of the left shoulder, he does not have any weakness, patient has area of fluctuance and induration as described in physical exam. Differential diagnosis includes but is not limited to ACS, MSK injury, abscess, cellulitis, I considered PE however patient is PERC negative. Based on these concerns, I ordered serum labs, cardiac workup, chest x-ray, left shoulder x-ray, and serum labs. ECG personally interpreted demonstrates normal sinus rhythm, rate 71, normal GA and QTc, no STEMI, patient does have isolated T wave inversion in lead III but this does not meet criteria for STEMI and morphology of his ECG is similar to previous ECGs which I reviewed. No findings of WPW, Brugada, or HCM. I performed [id number] bedside ultrasound as documented in procedures and identified abscess. Incision and drainage was performed. See procedure note for details. Wound culture collected. Due to purulence, bactrim was administered. Patient remained hypertensive and IV labetalol was ordered. Prior to receiving this, he went over to x-ray and vagaled. He became bradycardic to the 40s but then recovered. He states he has whitecoat syndrome and gets stressed in the hospital, he was also still stressed from having the I/D done. He recovered well from this and his blood pressure remained hypertensive so he received IV labetalol which improved his blood pressure to 164/106. While sleeping, patient would randomly desaturate briefly and spontaneously improved back to the mid to upper 90s. He was placed on oxygen while asleep. With his body habitus, this is likely VAL. Also could be related to patient taking flexeril earlier since he report that 1/2 of one usually knocks him out . Labs personally reviewed demonstrate normal CBC, CMP nonactionable, troponin undetectably low at less than 0.01 which is extremely reassuring in the setting of patient having symptoms for the last 2 to 3 days, if they were cardiac in etiology I would expect this level to be elevated at this time. Because of his brief desaturations, I did add a D-dimer though I have very low suspicion for PE since he is not tachycardic or hypotensive. D-dimer 0.56. Per years criteria patient does not require further workup for PE, no CTA PE indicated. I personally interpreted chest x-ray and left shoulder x-ray, I do not appreciate acute intrathoracic abnormality, no osseous injury appreciated in the shoulder. See radiology reads for final interpretations. Patient received Toradol in the ER. I performed additional testing of the shoulder and patient has pain when resisting anterior and lateral shoulder raise, but he specifically has significant pain with subscapularis testing. This does increase my suspicion for an MSK injury such as rotator cuff injury. He already follows with orthopedics for other chronic problems and I recommended follow-up with Dr. Fall for further evaluation. I also recommended follow-up with his PCP for reevaluation of possible VAL. Bactrim prescribed for abscess management. Patient was given instructions on symptomatic management, follow up instructions, and return precautions for the emergency department. Patient indicated understanding and was discharged in stable condition. Procedures Risk/Benefits of Procedure(s) Were Explained: Yes Abscess I/D Site: back (Left upper base of neck/superior shoulder as indicated in physical exam) Side (if applicable): left Technique: incised with #11 blade (Single stab incision) Amount of fluid expressed (mL): 3 Irrigation: Yes (Sterile saline) Packing used?: none Miscellaneous Procedure Procedure Performed: Soft tissue ultrasound Indication: Soft tissue redness, induration, fluctuance Identified structures: Subcutaneous tissue Location: Left trapezius Findings: Abscess approximately 1 cm in diameter, 0.5 cm deep Impression: Abscess Images were saved to the permanent archive. The study was technically adequate. Soft tissue CPT codes Neck: 95205-07 Upper extremity: 13836-14 Axilla: 49552-61 Chest wall: 34677-90 Breast: 17939-85 (complete), 02871-61-[RT/LT] (limited) Upper back: 37208-27 Abdominal wall: 61642-65 Pelvic wall: 03851-60 Lower extremity: 87065-70 Other soft tissue: 87410-40 This study was performed by me, and I personally interpreted all images/videos. Based on my clinical judgment, these images were adequate and did not necessitate further imaging. Critical Care Critical Care Time Critical Care Time: No
[2024-06-12 04:49] LABS: Troponin I < 0.01 ng/ml (0.00-0.034)
[2024-06-12] MEDS: ONDANSETRON 4MG/2ML VIAL 4 MG IV (04:52)
[2024-06-12] MEDS: SULFA/TRIMETHOPRIM 1 TABLET 1 EACH PO (04:56)
--- NOTE | 2024-06-12 04:56 | HMH.ITSTN ---
Took patient from his room by wheelchair to the xray room to perform his xrays. While starting his exams patient was standing and informed me he was going to pass out and get sick. I quickly helped the patient to the wheelchair and called for RN to the xray room. We took the patient back to his room so RN could perform vitals. RN is going to call when patient is stable to try taking the xrays again.
--- NOTE | 2024-06-12 04:58 | PC.NURSE ---
Patient had vasovagal episode while in xray, so labetalol was held for now per MD.
[2024-06-12] MEDS: LABETALOL 20MG/4ML SYRINGE 10 MG IV (05:00)
[2024-06-12 05:27] LABS: D-Dimer 0.56 ug/mL (0.0-0.5)
[2024-06-12] MEDS: KETOROLAC 30MG/ML VIAL 30 MG IV (05:53)
[2024-06-12 09:46] LABS: HIV (1&2) Antibody Rapid NONREACTIVE (NONREACTIVE)
[2024-06-13 08:39] LABS: HCV Ab Non Reactive (Non Reactive)
--- NOTE | 2024-06-15 12:07 | PC.NURSE ---
WOUND CULTURE DISCUSSED WITH DR ALMARAZ, NO NEW ORDERS
== END 2024-06-12 05:59 | disposition home or self-care (01) ==
PROVIDERS: Emergency Provider Emergency Medicine; PCP Student in an Organized Health Care Education/Training Program
DX: L02.91 Cutaneous abscess, unspecified (principal); M25.512 Pain in left shoulder
CPT/HCPCS: 10060; 71046; 73030; 80053; 84484; 85025; 85378; 86803; 87070; 87077; 87186; 87205; 87389; 93005; 96374; 96375; 99283; J1885; J1920; J2405

== ENCOUNTER 2025-01-05 07:20 | Emergency (ER) | payer OTHER, SELFPAY ==
[2025-01-05] VITALS (7 sets, daily range): BP systolic 177–206; BP diastolic 93–112; PULSE 77–98; RESP 14–20; TEMP 36.8–36.9; O2SAT 94–98; BMI 39.3
--- NOTE | 2025-01-05 07:33 | CT_ITS ---
FINAL REPORT TECHNIQUE: Axial imaging of the chest is obtained after the administration of contrast. 3-D MIP reformatted images were also obtained and reviewed per PE protocol. This study was performed with techniques to keep radiation doses as low as reasonably achievable (ALARA). Individualized dose reduction techniques using automated exposure control or adjustment of mA and/or kV according to the patient's size were employed. CLINICAL HISTORY: hemoptysis COMPARISON: Prior CTA of the chest 10/21/2021 FINDINGS: The pulmonary arteries are well filled. There is no evidence of pulmonary embolus. There is no aortic dissection. Heart size is normal. There is no mediastinal, hilar, or axillary lymphadenopathy. The previously noted right hilar adenopathy has resolved. The lungs are clear. There is no pleural or pericardial effusion. Limited evaluation of the upper abdomen is without acute abnormality. No acute osseous abnormality. IMPRESSION: No evidence of pulmonary embolism or aortic dissection. Reviewed, Interpreted and Dictated by Danielle Coello MD Transcribed by Kika Lopez Authenticated and [facility]
--- NOTE | 2025-01-05 07:37 | ECG_ITS ---
APPROVED REPORT Exam: Resting ECG HR:88 bpm ECG Measurements Heart Rate 88 AXES NM 162 P 58 QRSd 91 QRS -19 QT 343 T 60 QTc 388 Conclusion SINUS RHYTHM No STEMI Electronically signed by : JASSI GARCIA, 01/05/2025 10:56:25
--- NOTE | 2025-01-05 07:42 | HMH.EDGENADL ---
Discharge Plan Disposition Patient Disposition: Home, Self-Care Condition: Good Prescriptions Prescriptions: New doxycycline hyclate 100 mg tablet 100 mg PO BID 10 Days Qty: 20 0RF No Action (DME) Advanced Gluc Meter Test Strip Strip See Rx Instructions .Route Qty: 25 0RF Rx Instructions: As directed (DME) blood-glucose meter [Advanced Glucose Meter] Misc See Rx Instructions .Route Qty: 1 0RF Rx Instructions: As directed (DME) lancets [Accu-Chek Softclix Lancets] Misc See Rx Instructions .Route Qty: 100 0RF Rx Instructions: As directed amlodipine 5 mg tablet See Rx Instructions .ROUTE .COMPLEX Qty: 90 3RF Dose Instruction: TAKE ONE TABLET BY MOUTH ONCE A DAY Rx Instructions: TAKE ONE TABLET BY MOUTH ONCE A DAY cholecalciferol (vitamin D3) 1,250 mcg (50,000 unit) capsule 1,250 mcg PO WEEKLY Qty: 12 3RF cyanocobalamin (vitamin B-12) 1,000 mcg/mL solution 1,000 mcg SQ WEEKLY Qty: 10 5RF (DME) syringe with needle [BD Luer-Michele Syringe] 3 mL 23 gauge x 1 1/2 syringe See Rx Instructions .ROUTE .COMPLEX Qty: 4 5RF Dose Instruction: USE WEEKLY TO INJECT CYANOCOBALAMIN Rx Instructions: USE WEEKLY TO INJECT CYANOCOBALAMIN (DME) Aqinject Safety Needle 25 gauge x 1 needle See Rx Instructions .Route Qty: 4 5RF Rx Instructions: As directed folic acid 1 mg tablet See Rx Instructions .ROUTE .COMPLEX Qty: 30 0RF Dose Instruction: TAKE ONE TABLET BY MOUTH ONCE A DAY FOR SUPPLEMENT Rx Instructions: TAKE ONE TABLET BY MOUTH ONCE A DAY FOR SUPPLEMENT Referrals Follow up/Referrals: Provider,MD Joby [Primary Care Provider, Medical] - See instructions Choco Montague MD [Physician, Pulmonology] - See instructions Activity Restrictions/Add. Instructions Additional Instructions/Restrictions: You were evaluated in the emergency department today. As we discussed, most often hemoptysis is caused by infections or bleeding from the mouth or nose. Your CT scan and labs today are reassuring. If you continue to cough up blood after taking the antibiotics to treat possible upper respiratory infection, I recommend close follow-up with pulmonology. He would need to call their office to schedule an appointment. Please follow-up close with your primary care provider as well. Blood pressure was elevated today, however I know that you had not yet taken your blood pressure medication. Please keep an eye on your blood pressure at home. Return to the emergency department for new or worsening symptoms. Clinical Impressions Clinical Impression: Hemoptysis, Hypertension Stand Alone Forms Stand Alone Forms: Work/School Release Instructions Patient Instructions: DI for Hemoptysis Print Language Print Language: Italian Discharge ED Provider: Mia Ball General Adult HPI General Chief complaint: Cough Stated complaint: coughing up blood, dizziness Time Seen by Provider: 01/05/25 07:28 History of Present Illness HPI narrative: This patient is a 44-year-old male with a history of hypertension on amlodipine and vitamin B12 deficiency presenting to the emergency department for evaluation concern for hemoptysis. Patient states that he did feeling fatigued for a few days, but nothing else noted out of the ordinary until this morning when he noted he was coughing up blood. He also notes mild nausea. He is sure that he is coughing it up as opposed to vomiting. No nosebleeds recently, no fevers, sore throat, or URI type symptoms. He denies any history of blood clots or clotting disorders and does not take blood thinners. No dysphagia, chest pain, or shortness of breath noted. Related Data Previous Rx's ?Medication ?Instructions ?Recorded safety needles 25 gauge x 1 #4 ea 05/26/23 (Aqinject Safety Needle) blood sugar diagnostic (Advanced #25 ea 07/09/23 Glucose Meter Test Strips) blood-glucose meter (Advanced #1 ea 07/09/23 Glucose Meter) lancets (Accu-Chek Softclix #100 ea 07/10/23 Lancets) amlodipine 5 mg tablet See Rx Instructions .Route 04/02/24 .COMPLEX #90 tabs cholecalciferol (vitamin D3) 1,250 1,250 mcg PO WEEKLY vitamin d 04/02/24 mcg (50,000 unit) capsule deficiency #12 caps cyanocobalamin (vitamin B-12) 1,000 mcg SQ WEEKLY #10 mL 04/02/24 1,000 mcg/mL injection solution syringe with needle 3 mL 23 gauge #4 ea 04/02/24 x 1 1/2 (BD Luer-Michele Syringe) folic acid 1 mg tablet See Rx Instructions .Route 10/04/24 .COMPLEX #30 tabs doxycycline hyclate 100 mg tablet 100 mg PO BID 10 days #20 tabs 01/05/25 Allergies Allergy/AdvReac Type Severity Reaction Status Date / Time lisinopril Allergy Intermediate cough Verified 11/08/24 09:18 [facility] Disclaimer: The information contained in this section may have been updated after the patient was seen, as this information can be updated by other users. Medical History Otitis media B12 deficiency History of hemolytic anemia Right hip pain Greater trochanteric bursitis of right hip Fusion of lumbar spine Diabetes Chronic lumbar radiculopathy Elevated hemoglobin A1c Hypertension Surgical History History of hernia surgery History of cholecystectomy Family History Family/Other Hypertension Diabetes Social History Smoking Status: Never smoker alcohol intake: current alcohol intake frequency: holidays/special occasions only substance use type: denies use current occupational status: employed Travel in the last 8 weeks?: None household members: family housing: house marital status: current occupation: concrete Have you lived/traveled outside US in past 30 days?: No Contact w/someone who lives/traveled outside US past 30 days?: No Exposure to someone with infectious disease in past 14 days?: No Do you have a fever (greater than 100.4 F or 38 C)?: No Have you tested positive for COVID-19?: No Exposed to someone with COVID-19 in past 14 days?: No Do you have a sore throat?: No Do you have a cough?: Yes Do you have any weakness?: No Do you have any diarrhea?: No Are you experiencing any unusual bleeding?: Yes Do you have any muscle aches/pain?: No Do you have any abdominal pain?: No Are you experiencing loss of taste or smell?: No Other Medical History Have you received the Flu Vaccine for this season: No Have you received the Pneumonia Vaccine: No ROS Obtained: Yes All systems reviewed & no additional complaints except as documented Physical Exam General General appearance: alert and in no apparent distress Head Head exam: atraumatic and normocephalic Eye Eye exam: Present normal appearance, PERRL and EOMI ENT ENT exam: Present normal exam, normal oropharynx, mucous membranes moist and normal external ear exam Neck Neck exam: Present normal inspection, full ROM and trachea midline; Absent tenderness Chest Chest inspection: Present normal inspection and symmetric chest wall rise; Absent tenderness Respiratory Respiratory exam: Present normal lung sounds bilaterally; Absent respiratory distress, wheezes, stridor or accessory muscle use Cardiovascular Cardiovascular exam: Present regular rate and normal rhythm Abdominal Exam Abdominal exam: Present soft; Absent distention, tenderness or guarding Extremities Exam Extremities exam: Present normal inspection, full ROM and normal capillary refill; Absent tenderness or edema Back Exam Back exam: Present normal inspection and full ROM; Absent tenderness Neurological Exam Neurological exam: Present alert, oriented X3, CN II-XII intact and normal gait; Absent motor sensory deficit Psychiatric Psychiatric exam: Present normal affect and normal mood Skin Skin exam: Present warm and dry Medical Decision Making Medical Records Medical records reviewed: Yes I reviewed the patient's medical records. Screening: Per USPSTF and CDC recommendations, given the prevalence of disease in our region, it is our hospital?s policy to screen for HIV and viral Hepatitis for all patients aged 18 and over and those with ongoing risk factors. Brock Inquiry Pt receiving controlled substance: No Vital Signs: 01/05/25 07:25 01/05/25 07:47 01/05/25 08:00 Temperature 98.4 F Temperature Source Oral Pulse Rate 77 90 Pulse Rate [Left Radial] 98 H Respiratory Rate 20 14 Blood Pressure 206/112 H 194/100 H Blood Pressure [Right Arm] 206/112 H Blood Pressure Mean Blood Pressure Mean [Right Arm] 143 02 Sat by Pulse Oximetry 95 94 L 94 L Oxygen Delivery Method Room Air Room Air Room Air 01/05/25 08:30 01/05/25 09:07 01/05/25 09:31 Temperature Temperature Source Pulse Rate 98 H 81 88 Pulse Rate [Left Radial] Respiratory Rate 15 18 18 Blood Pressure 182/93 H 187/103 H 177/109 H Blood Pressure [Right Arm] Blood Pressure Mean 131 122 Blood Pressure Mean [Right Arm] 02 Sat by Pulse Oximetry 95 98 98 Oxygen Delivery Method Room Air Lab Data Lab results reviewed: Yes I reviewed the patient's lab results. Lab Results 01/05/25 07:41: WBC 10.1, RBC 5.19, Hgb 16.3, Hct 46.3, MCV 89.2, MCH 31.4 H, MCHC 35.2, RDW 13.2, Plt Count 266, MPV 10.1, Neut % (Auto) 72.8, Lymph % (Auto) 17.6, [place] % (Auto) 6.4, Eos % (Auto) 2.3, Baso % (Auto) 0.5, Neut # (Auto) 7.3, Lymph # (Auto) 1.8, [place] # (Auto) 0.6, Eos # (Auto) 0.2, Baso # (Auto) 0.1, PT 10.1, INR 0.90, APTT 25.5, Sodium 140, Potassium 4.4, Chloride 106, Carbon Dioxide 29, Anion Gap 9.4, BUN 13, Creatinine 1.00, Estimated Creat Clear 177, Estimated GFR 82, Est GFR ( Amer) 99, Glucose 202 H, Calcium 8.7, Total Bilirubin 0.5, AST 28, ALT 23, Alkaline Phosphatase 109, Troponin I < 0.01, Total Protein 7.5, Albumin 4.4, Globulin 3.1, Albumin/Globulin Ratio 1.4 01/05/25 07:44: SARS-CoV-2 (PCR) Not detected, Influenza A Untype (PCR) Not detected, Influenza Type B (PCR) Not detected 01/05/25 07:41 01/05/25 07:41 Orders (Tests/Meds): ED MEDICATIONS Generic Name Dose Route Start Last Admin Trade Name Freq PRN Reason Stop Dose Admin Sodium Chloride 3 ml 01/05/25 09:45 Sodium Chloride 3% 15ml Neb IH 02/04/25 09:44 ONCE PRN INDUCE SPUTUM COLLECTION Discontinued Medications Generic Name Dose Route Start Last Admin Trade Name Freq PRN Reason Stop Dose Admin Iopamidol 75 ml 01/05/25 08:51 01/05/25 08:52 Iopamidol-370 (76%);100ml Bottle IV 01/05/25 08:52 75 ml ONCE ONE Administration Ondansetron HCl 4 mg 01/05/25 07:34 01/05/25 07:56 Ondansetron 4mg/2ml Vial IV 01/05/25 07:35 4 mg ONCE ONE Administration Sodium Chloride 50 ml 01/05/25 08:51 01/05/25 08:52 0.9 % Sodium Chloride 50 Ml Vial IV 01/05/25 08:52 40 ml ONCE ONE Administration Sodium Chloride 10 ml 01/05/25 08:51 01/05/25 08:52 Sodium Chloride 0.9% 10ml Syr (Rad Only) IV 01/05/25 08:52 10 ml ONCE ONE Administration ORDERS Category Date Time Status CTA Chest [CT angio chest PE protocol] Stat Cat Scan 01/05/25 07:33 Completed Complete Blood Count Auto Diff Stat Lab 01/05/25 07:41 Completed Comprehensive Metabolic Panel Stat Lab 01/05/25 07:41 Completed PT INR [Prothrombin Time INR] Stat Lab 01/05/25 07:41 Completed PTT [Activated Partial Thrombo Time] Stat Lab 01/05/25 07:41 Completed Rapid PCR Covid and Flu A/B Stat Lab 01/05/25 07:44 Completed Trop I [Troponin I] Stat Lab 01/05/25 07:41 Completed Troponin I Q3H Lab 01/05/25 10:45 Ordered Troponin I Q3H Lab 01/05/25 13:45 Ordered Sputum Culture & Gram Stain Stat Micro 01/05/25 09:50 Received ECG Data Tracing #1: I reviewed this ECG and interpreted as documented below: Normal sinus rhythm with a ventricular rate of [address] changes concerning for ischemia. Normal intervals ECG initial impression date: 01/05/25 ECG initial impression time: 07:40 Medical Decision Narrative: In summary, this patient is a 44-year-old male presenting to the Emergency Department for evaluation of hemoptysis. Differential diagnoses considered include but are not limited to bronchitis, epistaxis, pneumonia, PE. Ruling out the most morbid conditions drove assessment. It should be noted patient's history includes obesity, hypertension which may or may not be at goal therapy. This complicates all aspects of care by increasing patient's risk for morbidity. I reviewed patient's past medical records and noted prior PCP evaluations for maintenance of health. On exam, the patient is sitting upright in no acute distress. I do not appreciate any blood in his nose or posterior oropharynx. He has no stridor or notable swelling/deformity on neck exam. He is able to produce a scant amount of bright red blood with a cough. Cardiopulmonary and abdominal exams are normal. Vitals are normal on cardiac telemetry. Workup included CBC, CMP, troponin, EKG, coags, CTA PE protocol. He was given IV Zofran for symptomatic improvement. I independently interpreted CTA prior to the radiologist read and noted no large blood clot, no large focal consolidation concerning for pneumonia, no pneumothorax. Please see their read for final interpretation. Labs were obtained that demonstrated reassuring CBC with no significant leukocytosis or anemia, platelet count is normal. Chemistry is reassuring as well with negative troponin. EKG obtained is reassuring. Coags are normal.. On reassessment, patient is resting comfortably in no acute distress with normal vitals on cardiac telemetry. Cardiopulmonary exam remains reassuring and he has no increased work of breathing. His sputum is clearing with only scant blood-tinged sputum at this time. Unclear if this could be related to head neck bleeding or if it could be infectious such as bronchitis/URI. He is certainly in no distress and workup is been reassuring, so I feel that he is appropriate for discharge home. Sputum culture was sent and is pending. Will trial doxycycline to see if this helps. Advise that he follow-up closely with pulmonology if his symptoms do not clear with antibiotic. He was also given strict return precautions should his symptoms worsen. He was discharged after all questions were answered. Critical Care Critical Care Time Critical Care Time: No
[2025-01-05 07:50] LABS: Coronavirus 19, PCR Not Detected (NotDetected); Influenza A, PCR Not Detected (NotDetected); Influenza B, PCR Not Detected (NotDetected)
[2025-01-05 07:50] LABS: Basophils # 0.1 K/mm3 (0-0.2); Basophils % 0.5 % (0.1-2.0); Eosinophils # 0.2 Kmm3 (0.0-0.4); Eosinophils % 2.3 % (0.1-12.0); Hematocrit 46.3 % (42.0-52.0); Hemoglobin 16.3 g/dL (14.1-18.0); Immature Granulocytes # 0.04 10^3uL; Immature Granulocytes % 0.4 %; Lymphocytes # 1.8 K/mm3 (0.7-4.5); Lymphocytes % 17.6 % (10-50); Mean Corpuscular HGB Conc 35.2 g/dL (31.8-35.4); Mean Corpuscular Hemoglobin 31.4 pg (27.0-31.2); Mean Corpuscular Volume 89.2 fl (80-94); Mean Platelet Volume 10.1 fl (7.4-10.4); Monocytes # 0.6 K/mm3 (0.1-1.0); Monocytes % 6.4 % (1.7-9.3); Neutrophils # 7.3 K/mm3 (1.8-7.8); Neutrophils % 72.8 % (37.0-80.0); Nucleated Red Blood Cells # 0 10^3/uL; Nucleated Red Blood Cells % 0 %; Platelet Count 266 K/mm3 (142-424); Red Blood Count 5.19 M/mm3 (4.60-6.20); Red Cell Distribution Width 13.2 % (11.5-17.5); Red Cell Distribution Width-SD 42.9 fL; White Blood Count 10.1 K/mm3 (4.8-10.8)
[2025-01-05] MEDS: ONDANSETRON 4MG/2ML VIAL 4 MG IV (07:56)
[2025-01-05 08:21] LABS: Albumin Level 4.4 g/dl (3.5-5.0); Chloride 106 mmol/L (98-107); Potassium 4.4 mmoL/L (3.5-5.1); Sodium 140 mmol/L (136-145)
[2025-01-05 08:23] LABS: Activated Partial Thrombo Time 25.5 seconds (22.8-30.6); Prothrombin Time 10.1 seconds (10.1-12.5)
[2025-01-05 08:24] LABS: Alanine Aminotransferase 23 U/L (12-78); Albumin/Globulin Ratio 1.4 (1.1-1.8); Alkaline Phosphatase 109 U/L (38-126); Anion Gap 9.4 mEq/L (5-15); Aspartate Amino Transferase 28 U/L (17-59); Bilirubin,Total 0.5 mg/dl (0.2-1.3); Blood Urea Nitrogen 13 mg/dl (9-20); Calcium 8.7 mg/dl (8.4-10.2); Carbon Dioxide 29 mmol/L (22.0-30.0); Creatinine Clearance Estimated 177 mL/min (50-200); Estimated Glomerular Filt Rate 82 ml/min (>60); GFR (African American) 99 ML/MIN (>60); Globulin 3.1 g/dL (1.3-3.2); Glucose 202 mg/dl (74-100); Total Protein,Serum 7.5 g/dl (6.3-8.2)
[2025-01-05 08:36] LABS: Troponin I < 0.01 ng/ml (0.00-0.034)
[2025-01-05] MEDS: 0.9 % SODIUM CHLORIDE 50 ML VIAL IV (08:52)
[2025-01-05] MEDS: IOPAMIDOL-370 (76%);100ML BOTTLE 75 ML IV (08:52)
[2025-01-05] MEDS: SODIUM CHLORIDE 0.9% 10ML SYR (RAD ONLY) 10 ML IV (08:52)
== END 2025-01-05 10:11 | disposition home or self-care (01) ==
PROVIDERS: Emergency Provider Emergency Medicine
DX: R04.2 Hemoptysis (principal); R11.0 Nausea; I10 Essential (primary) hypertension
CPT/HCPCS: 71275; 80053; 84484; 85025; 85610; 85730; 87070; 87205; 87636; 93005; 96374; 99284; J2405; Q9967

== ENCOUNTER 2025-06-02 08:47 | Outpatient (CLI) | payer OTHER, SELFPAY ==
[2025-06-02 14:38] LABS: Hemoglobin A1C 7.0 % (4.0-6.0)
[2025-06-02 14:50] LABS: Cholesterol 211 mg/dl (140-200); HDL Cholesterol 37 mg/dl (40-60); Triglycerides 223 mg/dl (30-150)
--- OUTSIDE RECORDS SUMMARY | 2025-06-06 08:51 | XMS_ITS | Referral Summary ---
Author Organization [employer] ([place], [place], [place], [place], [place]) Address [address] [place] [address] Care Team Providers Care Brine Maker Name Role Phone Unavailable Primary Care Provider Unavailabl e Social History Tobacco Use Types Packs/Day Years Used Date Smoking Tobacco: Never Assessed Food Insecurity Answer Date Recorded Food run out past 12 months Not on file 11/03 Food did not last past 12 months Not on file 11/26/2023 Employment Answer Date Recorded Help finding and keeping a job Not on file 0 11/26/2023 Family and Community Support Answer Kishor e Recorded Help with Day to Day Activities Not on file 11/26/2023 Feeling Lonely or Isolated Not on file 11/25 Educational Attainment Answer Date Ricky rded Speak language other than Lao at home Not on file 11/26/2023 Want help with school or training Not on file 11/26/2023 Substance Use Answer Date Recorded Used prescription meds for non-medical reasons N ot on file 11/26/2023 Used illegal drugs past 12 months Not on file 11/26/2023 Sex and Gender Information Value Date Recorded Sex Assigned at Not on file Legal Sex Male 3:34 PM CDT Gender Identity Not on file Sexual Orientation Not on file Plan of Treatment Not on file
--- OUTSIDE RECORDS SUMMARY | 2025-06-06 08:51 | XMS_ITS | Clinical Summary ---
Author Organization [facility] Address [address] [place] [address] Phone Care Team Providers Care Digital Marketing Manager Name Role Phone Nallely Duarte MD Unavailable [phone] Allergies No known active allergies Medications amLODIPine (NORVASC) 5 mg Oral Tablet Take 5 mg by mouth daily. Active cyanocobalamin 1,000 mcg/mL Inj Solution 1000mcg IM daily x 5 days then weekly x 4 weeks 9 Vial 0 Active folic acid (FOLVITE) 1 mg Oral Tablet Take 1 Tab by mouth daily. 30 Tab 11 0 Active Syringe with Needle, Disp, (SYRINGE 3CC/20GX1 ) 3 mL 20 gauge x 1 Misc Syringe Appropriate syringe and needle for IM b12 injections 9 Syringe 0 Active cholecalciferol , vitamin D3, 25 mcg (1,000 unit) Oral Tablet 0 Active ergocalciferol (DRISDOL) 50,000 unit Oral Capsule 0 Active LEVOthyroxine (SYNTHROID) 25 mcg Oral Tablet 0 Active pantoprazole (PROTONIX) 40 mg Oral Tablet, Delayed Release (E.C.) TAKE ONE TABLET BY MOUTH 2 TIMES A DAY 180 Tablet 3 Active hyoscyamine (LEVSIN) 0.125 mg Oral Tablet Take 1 Tablet by mouth 2 times daily as needed for Cramping. 60 Tablet 3 Active Active Problems Problem Noted Date Diagnosed Date Atrophic gastritis 05/01/2022 Overview (05/01/2022): Added automatically from request for surgery [id number] Intestinal metaplasia of stomach without dysplas ia 05/01/2022 Overview (05/01/2022): Added automatically from request for surgery [id number] Left upper quadrant pain 05/01/2022 Overview (05/01/2022): Added automatically from request for surgery [id number] Abdominal pain, left lower quadrant 05/01/2022 Overview (05/01/2022): Added automatically from request for surgery [id number] Anemia due to vitamin B12 deficiency 08/17/2019 Macrocytic anemia 08/17/2019 Splenomegaly 08/17/2019 Epigastric pain Nausea Bloating Surgical History Surgery Date Site/Laterality Comments LUMBAR FUSION HERNIA REPAIR CHOLECYSTECTOMY UPPER GASTROINTESTINAL ENDOSCOPY 02/11/2020 N/A ESOPHAGOGASTRODUODENOSCOPY aborted ; Surgeon: Chapincito Diaz MD; Location: [facility]; Service: Endoscopy UPPER GASTROINTESTINAL ENDOSCOPY 03/07/2020 N/A ESOPHAGOGASTRODUODENOSCOPY with biopsy; Surgeon: Chapincito Diaz MD; Location: [facility]; Service: Endoscopy COLONOSCOPY 08/01/2022 N/A Surgeon: Chapincito Diaz MD; Location: [facility]; Service: Endoscopy UPPER GASTROINTESTINAL ENDOSCOPY 08/01/2022 N/A Esophagogastroduodenoscopy with biopsies via forceps and Colonoscopy with biopsies and polypectomy via cold snare; Surgeon: Chapincito Diaz MD; Location: [facility]; Service: Endoscopy Medical History Medical History Date Comments Anemia Anxiety Hypertension Heartburn Thyroid disease Post-operative nausea and vomiting Family History Medical History Relation Name Comments Diabetes Brother Diabetes Father COPD Mother Diabetes Mother Heart Defect Sister Relation Name Status Comments Brother Alive Father Mother Alive Sister Alive Social History Tobacco Use Types Packs/Day Years Used Date Smoking Tobacco: Never Smokeless Tobacco: Never Tobacco Cessation:Counseling Given: Not Answered Alcohol Use Standard Drinks/Week Comments Not Currently 0 (1 standard drink = 0.6 oz pur e alcohol) Sex and Gender Information Value Date Recorded Sex Assigned at Not on file Legal Sex Male 9:44 AM EST Gender Identity Not on file Sexual Orientation Not on file Last Filed Vital Signs Vital Sign Reading Time Taken Comments Blood Pressure 178/102 09/30/2022 1:35 PM EST Pt states he is nervous Pulse 94 08/01/2022 11:10 AM EST Temperature 37.3 C (99.1 F) 08/01/2022 11:00 AM EST Respiratory Rate 18 08/01/2022 11:1 0 AM EST Oxygen Saturation 95% 08/01/2022 11: 10 AM EST Inhaled Oxygen Concentration - - Weight 138.8 kg (306 lb) 09/30/2022 1:3 5 PM EST Height 190.5 cm (6' 3 ) 09/30/2022 1:35 PM EST Body Mass Index 38.25 09/30/2022 1:35 PM EST Plan of Treatment Health Maintenance Due Date Last Done Comments Annual Wellness Exam 1984 Hepatitis B Vaccine (1 of 3 - 19+ 3-dose series) 2000 DTaP/TDaP/Td (2 - Td or Tdap) 12/27/2024 12/27/2014 COVID-19 Vaccine (1 - 2024-2 6 season) 2025 Influenza Vaccine (#1) 2025 Meningococcal B Vaccine Aged Out No l onger eligible based on patient's age to complete this topic Pneumococcal Vaccine 0-49 Aged Out No longer eligible based on patient's age to complete this topic Insurance MEDICAID Advance Directives For more information, please contact: [phone] * Full Code (Latest Code Status on File) Date Activated Date Inactivated Comments 08/16/2019 11:26 AM 08/18/2019 7:43 PM Care Teams Digital Marketing Manager Relationship Specialty Start Date End Date Nallely Duarte MD [address] [place] [address] Medical Oncologist Internal Medicine-Medical Oncology 08/16/19
--- OUTSIDE RECORDS SUMMARY | 2025-06-06 08:51 | XMS_ITS | Clinical Summary ---
Author Organization [employer] ([place], [place], [place], [place], [place]) Address [address] [place] [address] Care Team Providers Care Operations Associate Name Role Phone Unavailable Primary Care Provider [...] Date Ricky rded Speak language other than Slovenian at home Not on file 11/26/2023 Want [...]
== END 2025-06-02 23:59 | disposition home or self-care (01) ==
LOC: LAB.DROPOF 06-06 08:47
PROVIDERS: PCP Internal Medicine; Visit Provider Internal Medicine
DX: E78.5 Hyperlipidemia, unspecified (principal); I10 Essential (primary) hypertension; R73.09 Other abnormal glucose
CPT/HCPCS: 80061; 83036; 84403

== ENCOUNTER 2025-07-19 13:30 | Outpatient (CLI) | payer OTHER, SELFPAY ==
--- OUTSIDE RECORDS SUMMARY | 2025-07-20 19:02 | XMS_ITS | Clinical Summary ---
Author Organization [employer] ([place], [place], [place], [place], [place]) Address [address] [place] [address] Care Team Providers Care Junior Web Developer Name Role Phone Unavailable Primary Care Provider [...] Date Ricky rded Speak language other than Belarusian at home Not on file 11/26/2023 Want [...]
--- OUTSIDE RECORDS SUMMARY | 2025-07-20 19:02 | XMS_ITS | Clinical Summary ---
Author Organization [facility] Address [address] [place] [address] Phone Care Team Providers Care Beef Trimmer Name Role Phone Nallely Duarte MD Unavailable [phone] Allergies No known active allergies Medications [...] (05/01/2022): Added automatically from request for surgery [id number] Intestinal metaplasia of stomach without dysplas ia 05/01/2022 Overview (05/01/2022): Added automatically from request for surgery [id number] Left upper quadrant pain 05/01/2022 Overview (05/01/2022): Added automatically from request for surgery [id number] Abdominal pain, left lower quadrant 05/01/2022 Overview (05/01/2022): Added automatically from request for surgery [id number] Anemia due to vitamin B12 deficiency 08/17/2019 Macrocytic anemia 08/17/2019 Splenomegaly 08/17/2019 Epigastric pain Nausea Bloating Surgical History Surgery Date Site/Laterality Comments LUMBAR FUSION HERNIA REPAIR CHOLECYSTECTOMY UPPER GASTROINTESTINAL ENDOSCOPY 02/11/2020 N/A ESOPHAGOGASTRODUODENOSCOPY aborted ; Surgeon: Chapincito Diaz MD; Location: [facility]; Service: Endoscopy UPPER GASTROINTESTINAL ENDOSCOPY 03/07/2020 N/A ESOPHAGOGASTRODUODENOSCOPY with biopsy; Surgeon: Chapincito Diaz MD; Location: [facility]; Service: Endoscopy COLONOSCOPY 08/01/2022 N/A Surgeon: Chapincito Diaz MD; Location: [facility]; Service: Endoscopy UPPER GASTROINTESTINAL ENDOSCOPY 08/01/2022 N/A Esophagogastroduodenoscopy with biopsies via forceps and Colonoscopy with biopsies and polypectomy via cold snare; Surgeon: Chapincito Diaz MD; Location: [facility]; Service: Endoscopy Medical History Medical [...] Advance Directives For more information, please contact: [phone] * Full Code (Latest Code Status on File) Date Activated Date Inactivated Comments 08/16/2019 11:26 AM 08/18/2019 7:43 PM Care Teams Beef Trimmer Relationship Specialty Start Date End Date Nallely Duarte MD [address] [place] [address] Medical Oncologist Internal Medicine-Medical Oncology 08/16/19
--- OUTSIDE RECORDS SUMMARY | 2025-07-20 19:02 | XMS_ITS | Referral Summary ---
Author Organization [employer] ([place], [place], [place], [place], [place]) Address [address] [place] [address] Care Team Providers Care Blood Donor Recruiter Supervisor Name Role Phone Unavailable Primary Care Provider [...] Date Ricky rded Speak language other than Martiniquais at home Not on file 11/26/2023 Want [...]
== END 2025-07-19 23:59 | disposition home or self-care (01) ==
LOC: LAB.DROPOF 07-20 19:01
PROVIDERS: PCP Internal Medicine; Visit Provider Internal Medicine
DX: L72.3 Sebaceous cyst (principal); L08.9 Local infection of the skin and subcutaneous tissue, unspecified
CPT/HCPCS: 87070; 87077; 87205